=== PATIENT | female | born 1955 | race Caucasian/White ===

== ENCOUNTER 2018-06-05 11:07 | Inpatient (IN) | payer MEDICARE ==
[~2018-06-05] VITALS: Ht 162.6 cm; Wt 44.9 kg
[2018-06-05] VITALS (18 sets, daily range): BP systolic 82–159; BP diastolic 52–81; BMI 15.8
--- NOTE | ~2018-06-05 | MORECARE ---
CASE MANAGEMENT DISCHARGE SUMMARY PATIENT: DAVIDSON RIZZO ZAMZAM UNIT: [id number] ADM DATE: 06/05/18 AGE: 63 : 54 SEX: F ROOM/BED: D.1203 AUTHOR: NAYELI ZEPEDA PHYSICIAN: REFERRING PHYSICIAN: KRISTI AYOUB MD DATE OF SERVICE: 06/10/18 Discharge Plan Patient Name: DAVIDSON RIZZO Facility: [facility]:[place] : 1955 Planned Disposition: Home Anticipated Discharge Date: Discharge Date: Expected LOS: Initial Reviewer: [email or web address] Initial Review Date: 06/10/2018 Generated: 06/10/18 10:31 pm DCPIA - Discharge Planning Initial Assessment Updated by [email or web address]: Sue Cline on 06/10/18 9:25 pm * Is the patient Alert and Oriented? Yes * How many steps to enter\exit or inside your home? * PCP GUERRERO * Pharmacy [facility] * Preadmission Environment Home with Family * ADLs Partial Dependent * Partial ADLs (Assistance needed) Bathing * Equipment Nebulizer * Other Equipment SHOWER CHAIR * List name and contact numbers for known caregivers / representatives who currently or will assist patient after discharge: LATASHA LEE [phone] * Verbal permission to speak to the caregivers and representatives has been obtained from the patient. N/A * Community resources currently utilized None * Additional services required to return to the preadmission environment? No * Can the patient safely return to the preadmission environment? Yes * Has this patient been hospitalized within the prior 30 days at any hospital? No Last DP export: 06/10/18 8:24 Patient Name: DAVIDSON RIZZO Page 42820 at 2132 All edits/amendments must be made on the electronic document DICTATION DATE: 06/10/182130 IMMUNOLOGIST: MARIA INES 06/10/182130 RPT#: [id number] DC DATE: STATUS: ADM IN [address] [address] END OF REPORT
--- NOTE | ~2018-06-05 | MORECARE ---
CASE MANAGEMENT DISCHARGE SUMMARY PATIENT: DAVIDSON RIZZO ZAMZAM UNIT: [id number] ADM DATE: 06/05/18 AGE: 63 : 54 SEX: F ROOM/BED: D.1203 AUTHOR: DUANE,DOC PHYSICIAN: REFERRING PHYSICIAN: KRISTI AYOUB MD DATE OF SERVICE: 06/11/18 Discharge Plan Patient Name: DAVIDSON RIZZO Facility: [facility]:[place] : 1955 Planned Disposition: Home Anticipated Discharge Date: Discharge Date: 06/11/2018 Expected LOS: Initial Reviewer: [id number] Initial Review Date: 06/10/2018 Generated: 06/11/18 8:55 pm Comments DCP- Discharge Planning Updated by [email or web address]: Sue Cline on 06/11/18 6:[address] LATE ENTRY 06/11/18 CM GAVE PATIENT INFORMATION ON [facility] AND THEIR NUMBER. PATIENT DENIES ANY NEEDS AT THIS TIME. IMM EXPLAINED AND SERVED 06/11/18 @ 1228 DCP- Discharge Planning Updated by [email or web address]: Sue Cline on 06/10/18 8:[address] Patient Name: DAVIDSON RIZZO Admission Status: ER Accout number: [id number] Admission Date: 06-05-2018 : 1955 Admission Diagnosis:ACUTE RESPIRATORY FAILURE WITH HYPERCAPNIA Attending: KRISTI AYOUB Current LOS: 5 Anticipated DC Date: Planned Disposition: Home Primary Insurance: MEDICARE A & B Discharge Planning Comments: CM spoke with patient at bedside. Patient states that she wants to return to her home. Patient states that her brother was put on Hospice this week and she needs to get home because she doesn't want him to alone at home. Patient states that she would like to check on getting assistance to help with bathing and help with possibly light house work. CM gave her a pamphlet on [facility] and [facility]. CM will try to get in touch with these agencies in am to see if patient qualifies. CM will continue to follow and assist with discharge planning / needs. Husbandry Technician: Sue Cline DCPIA - Discharge Planning Initial Assessment Updated by [email or web address]: Sue Cline on 06/10/18 9:25 pm * Is the patient Alert and Oriented? Yes * How many steps to enter\exit or inside your home? * PCP GUERRERO * [place] [facility] [place] Preadmission Environment Home with Family * ADLs Partial Dependent * Partial ADLs (Assistance needed) Bathing * Equipment Nebulizer * Other Equipment SHOWER CHAIR * List name and contact numbers for known caregivers / representatives who currently or will assist patient after discharge: LATASHA LEE [phone] * Verbal permission to speak to the caregivers and representatives has been obtained from the patient. N/A * Community resources currently utilized None * Additional services required to return to the preadmission environment? No * Can the patient safely return to the preadmission environment? Yes * Has this patient been hospitalized within the prior 30 days at any hospital? No Coverage Notice Reviewer: [id number] - Sue Cline Notice Issued Date-Time: 06/11/2018 12:28 Notice Type: IM Discharge Notice Notice Delivered To: Patient Relationship to Patient: Self Front Office Specialist Name: Delivery Method: HAND - Hand Delivered Erika Days: Prior Verbal Notification: Recipient Understood Notice: Yes Recipient Signature: Yes Med Rec Note Co-signed by Attending: Coverage Notice Comment: Last DP export: 06/11/18 2:02 Patient Name: DAVIDSON RIZZO Page [id number] at 1955 All edits/amendments must be made on the electronic document DICTATION DATE: 06/11/181954 FARM MECHANIC APPRENTICE: MARIA INES 06/11/181954 RPT#: [id number] DC DATE:06/11/18 STATUS: DIS IN [facility] [address] [place] [address] END OF REPORT
--- NOTE | ~2018-06-05 | MORECARE ---
CASE MANAGEMENT DISCHARGE SUMMARY PATIENT: DAVIDSON RIZZO ZAMZAM UNIT: [id number] ADM DATE: 06/05/18 AGE: 63 : 54 SEX: F ROOM/BED: D.1203 AUTHOR: NAYELI ZEPEDA PHYSICIAN: REFERRING PHYSICIAN: KRISTI AYOUB MD DATE OF SERVICE: 06/10/18 Discharge Plan Patient Name: DAVIDSON RIZZO Facility: [facility]:[place] : 1955 Planned Disposition: Home Anticipated Discharge Date: Discharge Date: Expected LOS: Initial Reviewer: [email or web address] Initial Review Date: 06/10/2018 Generated: 06/10/18 10:24 pm Patient Name: DAVIDSON RIZZO Page 34700 at 2123 All edits/amendments must be made on the electronic document DICTATION DATE: 06/10/182123 STOCK CHECKERER: MARIA INES 06/10/182123 RPT#: [id number] DC DATE: STATUS: ADM IN [facility] [address] [place] [address] END OF REPORT
--- NOTE | ~2018-06-05 | MORECARE ---
CASE MANAGEMENT DISCHARGE SUMMARY PATIENT: DAVIDSON RIZZO ZAMZAM UNIT: [id number] ADM DATE: 06/05/18 AGE: 63 : 53 SEX: F ROOM/BED: D.1203 AUTHOR: DUANE,DOC PHYSICIAN: REFERRING PHYSICIAN: KRISTI AYOUB MD DATE OF SERVICE: 06/10/18 Discharge Plan Patient Name: DAVIDSON RIZZO Facility: [facility]:[place] : 1955 Planned Disposition: Home Anticipated Discharge Date: Discharge Date: Expected LOS: Initial Reviewer: [email or web address] Initial Review Date: 06/10/2018 Generated: 06/10/18 10:38 pm Comments DCP- Discharge Planning Updated by [email or web address]: Sue Cline on 06/10/18 8:[address] Patient Name: DAVIDSON RIZZO Admission Status: ER Accout number: [id number] Admission Date: 06-05-2018 : 1955 Admission Diagnosis:ACUTE RESPIRATORY FAILURE WITH HYPERCAPNIA Attending: KRISTI AYOUB Current LOS: 5 Anticipated DC Date: Planned Disposition: Home Primary Insurance: MEDICARE A & B Discharge Planning Comments: CM spoke with patient at bedside. Patient states that she wants to return to her home. Patient states that her brother was put on Hospice this week and she needs to get home because she doesn't want him to alone at home. Patient states that she would like to check on getting assistance to help with bathing and help with possibly light house work. CM gave her a pamphlet on [facility] and [facility] on Aging. CM will try to get in touch with these agencies in am to see if patient qualifies. CM will continue to follow and assist with discharge planning / needs. Linux Server Administrator: Sue Cline DCPIA - Discharge Planning Initial Assessment Updated by [email or web address]: Sue Cline on 06/10/18 9:25 pm * Is the patient Alert and Oriented? Yes * How many steps to enter\exit or inside your home? * PCP GUERRERO * Pharmacy [facility] [place] [place] * Preadmission Environment Home with Family * ADLs Partial Dependent * Partial ADLs (Assistance needed) Bathing * Equipment Nebulizer * Other Equipment SHOWER CHAIR * List name and contact numbers for known caregivers / representatives who currently or will assist patient after discharge: LATASHA LEE [phone] * Verbal permission to speak to the caregivers and representatives has been obtained from the patient. N/A * Community resources currently utilized None * Additional services required to return to the preadmission environment? No * Can the patient safely return to the preadmission environment? Yes * Has this patient been hospitalized within the prior 30 days at any hospital? No Last DP export: 06/10/18 8:32 Patient Name: DAVIDSON RIZZO Page 52359 at 2138 All edits/amendments must be made on the electronic document DICTATION DATE: 06/10/182137 COMBINE OPERATOR: MARIA INES 06/10/182137 RPT#: [id number] DC DATE: STATUS: ADM IN [facility] [address] [place] [address] END OF REPORT
--- NOTE | ~2018-06-05 | MORECARE ---
CASE MANAGEMENT DISCHARGE SUMMARY PATIENT: DAVIDSON RIZZO ZAMZAM UNIT: [id number] ADM DATE: 06/05/18 AGE: 63 : 53 SEX: F ROOM/BED: D.1203 AUTHOR: DUANE,DOC PHYSICIAN: REFERRING PHYSICIAN: KRISTI AYOUB MD DATE OF SERVICE: 06/11/18 Discharge Plan Patient Name: DAVIDSON RIZZO Facility: [facility]:[place] : 1955 Planned Disposition: Home Anticipated Discharge Date: Discharge Date: 06/11/2018 Expected LOS: Initial Reviewer: [email or web address] Initial Review Date: 06/10/2018 Generated: 06/11/18 4:02 pm Comments DCP- Discharge Planning Updated by [email or web address]: Sue Cline on 06/10/18 8:[address] Patient Name: DAVIDSON RIZZO Admission Status: ER Accout number: [id number] Admission Date: 06-05-2018 : 1955 Admission Diagnosis:ACUTE RESPIRATORY FAILURE WITH HYPERCAPNIA Attending: KRISTI AYOUB Current LOS: 5 Anticipated DC Date: Planned Disposition: Home Primary Insurance: MEDICARE A & B Discharge Planning Comments: CM spoke with patient at bedside. Patient states that she wants to return to her home. Patient states that her brother was put on Hospice this week and she needs to get home because she doesn't want him to alone at home. Patient states that she would like to check on getting assistance to help with bathing and help with possibly light house work. CM gave her a pamphlet on [facility] and [facility] Agency on Aging. CM will try to get in touch with these agencies in am to see if patient qualifies. CM will continue to follow and assist with discharge planning / needs. Internet Marketing Analyst: Sue Cline DCPIA - Discharge Planning Initial Assessment Updated by [email or web address]: Sue Cline on 06/10/18 9:25 pm * Is the patient Alert and Oriented? Yes * How many steps to enter\exit or inside your home? * PCP GUERRERO * Pharmacy [facility] * Preadmission Environment Home with Family * ADLs Partial Dependent * Partial ADLs (Assistance needed) Bathing * Equipment Nebulizer * Other Equipment SHOWER CHAIR * List name and contact numbers for known caregivers / representatives who currently or will assist patient after discharge: LATASHA LEE [phone] * Verbal permission to speak to the caregivers and representatives has been obtained from the patient. N/A * Community resources currently utilized None * Additional services required to return to the preadmission environment? No * Can the patient safely return to the preadmission environment? Yes * Has this patient been hospitalized within the prior 30 days at any hospital? No Last DP export: 06/10/18 8:38 Patient Name: DAVIDSON RIZZO Page 04804 at 1502 All edits/amendments must be made on the electronic document DICTATION DATE: 06/11/181500 CLINICAL DATA MANAGER: MARIA INES 06/11/18 1501 RPT#: [id number] DC DATE:06/11/18 STATUS: DIS IN [facility] [address] [place] [address] END OF REPORT
[2018-06-05 11:35] LABS: BASOPHILS 0.3 % (0-2); HEMATOCRIT 41.4 % (36.0-48.0); HEMOGLOBIN 13.3 g/dL (12-16); IMMATURE GRANULOCYTES 0.3 % (0-5); LYMPHOCYTES 35.9 % (15-50); MCH 31.7 pg (26.0-34.0); MCHC 32.1 g/dL (31.0-37.0); MCV 98.6 fL (80.0-100.0); MEAN PLATELET VOLUME 8.7 fL (7.4-10.4); MONOCYTES 3.7 % (2-11); NEUTROPHILS 57.8 % (40-80); PLATELET COUNT 324 10x3/uL (130-400); RDW 12.3 % (11.5-14.5); WBC 7.9 10x3/uL (4.8-10.8)
[2018-06-05 11:40] LABS: APPEARANCE CLEAR (CLEAR); BILIRUBIN NEGATIVE (NEGATIVE); COLOR YELLOW (YELLOW); GLUCOSE NEGATIVE (NEGATIVE); KETONE NEGATIVE (NEGATIVE); NITRITE NEGATIVE (NEGATIVE); PROTEIN 2+ mg/dL (NEGATIVE); SPECIFIC GRAVITY 1.015 (1.005-1.020); UROBILINOGEN NORMAL (NORMAL)
[2018-06-05 11:42] LABS: BACTERIA FEW /hpf (NONE SEEN); EPITHELIAL CELLS 0-5 /hpf (0-5); RED CELLS - URINE 0-5 /hpf (0-5); WHITE CELLS - URINE NSEEN /hpf (0-5)
[2018-06-05 11:47] LABS: ALBUMIN 3.2 g/dL (3.4-5.0); ALKALINE PHOSPHATASE 82 U/L (46-116); ALT (SGPT) 38 U/L (10-68); BILIRUBIN - TOTAL 0.35 mg/dL (0.2-1.3); CALC OSMOLALITY 279 mosm/kg (275-300); CALCIUM 8.2 mg/dL (8.5-10.1); CARBON DIOXIDE 24.1 mmol/L (21.0-32.0); CHLORIDE - SERUM 103 mmol/L (98-107); CREATININE - SERUM 0.6 mg/dL (0.6-1.3); GLUCOSE 182 mg/dL (74-106); POTASSIUM - SERUM 5.1 mmol/L (3.5-5.1); PROTEIN - SERUM 6.7 g/dL (6.4-8.2); SODIUM 138 mmol/L (136-145); UREA NITROGEN 11 mg/dL (7-18); eGFR NON AFRICAN AMERICAN > 90 mL/min (90-120)
[2018-06-05 11:58] LABS: CKMB 1.4 U/L (0.0-3.6); CREATINE KINASE 81 UL (21-215); TROPONIN-I 0.022 ng/mL (0.000-0.060)
[2018-06-05] MEDS ORDERED: SPIRIVA18 MCG INH (16:00)
[2018-06-05] MEDS ORDERED: ADVAIR HFA [SP]12 GM INH (16:04)
[2018-06-05] MEDS ORDERED: IPRAT-ALBUT 0.5-3 ML UPD (16:05)
[2018-06-05] MEDS ORDERED: ALBUTEROL SULF8.5 GM INH (16:07)
[2018-06-05] MEDS ORDERED: PLAVIX75 MG PO (16:08)
[2018-06-05] MEDS ORDERED: PROTONIX40 MG PO (16:09)
[2018-06-05] MEDS ORDERED: INDERAL 40 MG T40 MG PO (16:09)
[2018-06-05] MEDS ORDERED: LOW DOSE ASPIRI81 M1 PO (16:10)
[2018-06-05] MEDS ORDERED: PRAVACHOL40 MG PO (16:10)
[2018-06-05] MEDS ORDERED: VITAMIN D31000 UNIT PO (16:11)
[2018-06-05] MEDS ORDERED: MELATONIN 3 MG1 TAB PO (16:12)
[2018-06-05] MEDS ORDERED: MORPHINE S10 MG/5 ML (16:13)
[2018-06-05] MEDS ORDERED: ATIVAN0.5 MG (16:13)
[2018-06-06] VITALS (25 sets, daily range): BP systolic 85–143; BP diastolic 45–80
[2018-06-06 05:18] LABS: BASOPHILS 0 % (0-2); EOSINOPHILS 0 % (0-7); HEMATOCRIT 33.9 % (36.0-48.0); HEMOGLOBIN 10.7 g/dL (12-16); IMMATURE GRANULOCYTES 0.2 % (0-5); LYMPHOCYTES 9.7 % (15-50); MCH 30.8 pg (26.0-34.0); MCHC 31.6 g/dL (31.0-37.0); MCV 97.7 fL (80.0-100.0); MEAN PLATELET VOLUME 8.8 fL (7.4-10.4); MONOCYTES 2.3 % (2-11); NEUTROPHILS 87.8 % (40-80); PLATELET COUNT 251 10x3/uL (130-400); RBC 3.47 10x6/uL (4.00-5.40); RDW 12.4 % (11.5-14.5); WBC 9.9 10x3/uL (4.8-10.8)
[2018-06-06 05:48] LABS: ALBUMIN 2.6 g/dL (3.4-5.0); ALKALINE PHOSPHATASE 48 U/L (46-116); ALT (SGPT) 29 U/L (10-68); BILIRUBIN - TOTAL 0.27 mg/dL (0.2-1.3); CARBON DIOXIDE 24.4 mmol/L (21.0-32.0); CHLORIDE - SERUM 109 mmol/L (98-107); GLUCOSE 163 mg/dL (74-106); MAGNESIUM - SERUM 1.6 mg/dL (1.8-2.4); PHOSPHOROUS 2.6 mg/dL (2.5-4.9); PROTEIN - SERUM 5.8 g/dL (6.4-8.2); SODIUM 141 mmol/L (136-145); THYROID STIMULATING HORMONE 0.25 uIU/mL (0.36-3.74)
[2018-06-06 05:50] LABS: CALC OSMOLALITY 282 mosm/kg (275-300); CREATININE - SERUM 0.4 mg/dL (0.6-1.3); POTASSIUM - SERUM 3.5 mmol/L (3.5-5.1); UREA NITROGEN 8 mg/dL (7-18); eGFR NON AFRICAN AMERICAN > 90 mL/min (90-120)
[2018-06-06] MEDS ORDERED: TYLENOL #4 W/CO1 TAB PO (07:27)
[2018-06-06] MEDS ORDERED: SOMA350 MG PO (07:28)
[2018-06-06 10:16] LABS: UDS - AMPHET NEGATIVE QUAL (NEGATIVE); UDS - BARB NEGATIVE QUAL (NEGATIVE); UDS - BENZO POSITIVE QUAL (NEGATIVE); UDS - COCAINE NEGATIVE QUAL (NEGATIVE); UDS - OPIATE POSITIVE QUAL (NEGATIVE); UDS - PCP NEGATIVE QUAL (NEGATIVE); UDS - THC NEGATIVE QUAL (NEGATIVE)
[2018-06-06 10:36] LABS: APPEARANCE CLEAR (CLEAR); BILIRUBIN NEGATIVE (NEGATIVE); COLOR YELLOW (YELLOW); GLUCOSE NEGATIVE (NEGATIVE); KETONE NEGATIVE (NEGATIVE); NITRITE NEGATIVE (NEGATIVE); PROTEIN 1+ mg/dL (NEGATIVE); UROBILINOGEN NORMAL (NORMAL)
[2018-06-06 10:38] LABS: BACTERIA FEW /hpf (NONE SEEN); EPITHELIAL CELLS 0-5 /hpf (0-5); WHITE CELLS - URINE 0-5 /hpf (0-5)
[2018-06-07] VITALS (28 sets, daily range): BP systolic 90–165; BP diastolic 50–86; Ht 162.6 cm; Wt 44.9 kg
[2018-06-07 04:50] LABS: BASOPHILS 0 % (0-2); EOSINOPHILS 0 % (0-7); HEMATOCRIT 32.8 % (36.0-48.0); HEMOGLOBIN 10.3 g/dL (12-16); IMMATURE GRANULOCYTES 0.1 % (0-5); LYMPHOCYTES 9.9 % (15-50); MCH 31.2 pg (26.0-34.0); MCHC 31.4 g/dL (31.0-37.0); MCV 99.4 fL (80.0-100.0); MEAN PLATELET VOLUME 8.7 fL (7.4-10.4); PLATELET COUNT 270 10x3/uL (130-400); RDW 12.5 % (11.5-14.5); WBC 11.1 10x3/uL (4.8-10.8)
[2018-06-07 05:14] LABS: % SATURATION 12 % (15-55); IRON 26 ug/dl (35-150); TOTAL IRON BIND CAPACITY 212 ug/dl (260-445); UNSAT IRON BIND CAPACITY 186 ug/dl (150-375)
[2018-06-07 05:31] LABS: ALBUMIN 2.5 g/dL (3.4-5.0); ALKALINE PHOSPHATASE 40 U/L (46-116); ALT (SGPT) 21 U/L (10-68); BILIRUBIN - TOTAL 0.22 mg/dL (0.2-1.3); CALC OSMOLALITY 280 mosm/kg (275-300); CARBON DIOXIDE 25.5 mmol/L (21.0-32.0); CHLORIDE - SERUM 108 mmol/L (98-107); CREATININE - SERUM 0.5 mg/dL (0.6-1.3); FERRITIN 119 ng/mL (3-244); GLUCOSE 161 mg/dL (74-106); MAGNESIUM - SERUM 2.1 mg/dL (1.8-2.4); POTASSIUM - SERUM 3.9 mmol/L (3.5-5.1); PROTEIN - SERUM 5.8 g/dL (6.4-8.2); SODIUM 140 mmol/L (136-145); UREA NITROGEN 9 mg/dL (7-18); eGFR NON AFRICAN AMERICAN > 90 mL/min (90-120)
[2018-06-08] VITALS (25 sets, daily range): BP systolic 118–188; BP diastolic 60–95
[2018-06-08 06:20] LABS: BASOPHILS 0 % (0-2); EOSINOPHILS 0 % (0-7); HEMATOCRIT 38.9 % (36.0-48.0); IMMATURE GRANULOCYTES 0.2 % (0-5); MCHC 32.6 g/dL (31.0-37.0); MEAN PLATELET VOLUME 8.6 fL (7.4-10.4); MONOCYTES 6.8 % (2-11); RDW 12.4 % (11.5-14.5)
[2018-06-08 06:49] LABS: CALC OSMOLALITY 268 mosm/kg (275-300); CALCIUM 8.5 mg/dL (8.5-10.1); CARBON DIOXIDE 31.1 mmol/L (21.0-32.0); CHLORIDE - SERUM 99 mmol/L (98-107); GLUCOSE 120 mg/dL (74-106); MAGNESIUM - SERUM 1.8 mg/dL (1.8-2.4); POTASSIUM - SERUM 4.1 mmol/L (3.5-5.1); SODIUM 135 mmol/L (136-145); UREA NITROGEN 7 mg/dL (7-18)
[2018-06-08 06:50] LABS: CREATININE - SERUM 0.3 mg/dL (0.6-1.3); eGFR NON AFRICAN AMERICAN > 90 mL/min (90-120)
[2018-06-08 07:01] LABS: HEMOGLOBIN 12.7 g/dL (12-16); PLATELET COUNT 330 10x3/uL (130-400); RBC 3.97 10x6/uL (4.00-5.40); WBC 16.1 10x3/uL (4.8-10.8)
[2018-06-09] VITALS (22 sets, daily range): BP systolic 123–171; BP diastolic 60–88
[2018-06-09 06:43] LABS: BASOPHILS 0 % (0-2); EOSINOPHILS 0 % (0-7); HEMATOCRIT 38.1 % (36.0-48.0); HEMOGLOBIN 12.7 g/dL (12-16); IMMATURE GRANULOCYTES 0.2 % (0-5); LYMPHOCYTES 18.3 % (15-50); MCH 31.9 pg (26.0-34.0); MCHC 33.3 g/dL (31.0-37.0); MEAN PLATELET VOLUME 8.9 fL (7.4-10.4); MONOCYTES 7.9 % (2-11); NEUTROPHILS 73.6 % (40-80); PLATELET COUNT 309 10x3/uL (130-400); RBC 3.98 10x6/uL (4.00-5.40); RDW 12.1 % (11.5-14.5)
[2018-06-09 06:45] LABS: MCV 95.7 fL (80.0-100.0); WBC 9.6 10x3/uL (4.8-10.8)
[2018-06-09 06:46] LABS: CALCIUM 8.6 mg/dL (8.5-10.1); CARBON DIOXIDE 32.8 mmol/L (21.0-32.0); CHLORIDE - SERUM 104 mmol/L (98-107); GLUCOSE 105 mg/dL (74-106); SODIUM 143 mmol/L (136-145)
[2018-06-09 06:54] LABS: CALC OSMOLALITY 283 mosm/kg (275-300); CREATININE - SERUM 0.4 mg/dL (0.6-1.3); POTASSIUM - SERUM 4.2 mmol/L (3.5-5.1); UREA NITROGEN 9 mg/dL (7-18); eGFR NON AFRICAN AMERICAN > 90 mL/min (90-120)
[2018-06-09 22:07] LABS: IMMUNOGLOBULIN E 236 IU/mL (0-100)
[2018-06-10 00:45] VITALS: BP 160/78
[2018-06-10 04:13] VITALS: BP 178/84
[2018-06-10 06:47] LABS: BASOPHILS 0 % (0-2); EOSINOPHILS 0 % (0-7); HEMOGLOBIN 13.7 g/dL (12-16); IMMATURE GRANULOCYTES 0.2 % (0-5); LYMPHOCYTES 21.4 % (15-50); MCH 31.9 pg (26.0-34.0); MCHC 33.4 g/dL (31.0-37.0); MCV 95.3 fL (80.0-100.0); MEAN PLATELET VOLUME 8.6 fL (7.4-10.4); MONOCYTES 8.6 % (2-11); NEUTROPHILS 69.8 % (40-80); PLATELET COUNT 316 10x3/uL (130-400); RDW 12.1 % (11.5-14.5); WBC 11.3 10x3/uL (4.8-10.8)
[2018-06-10 07:01] LABS: CALC OSMOLALITY 278 mosm/kg (275-300); CALCIUM 9.3 mg/dL (8.5-10.1); CARBON DIOXIDE 30.4 mmol/L (21.0-32.0); CHLORIDE - SERUM 101 mmol/L (98-107); CREATININE - SERUM 0.5 mg/dL (0.6-1.3); GLUCOSE 112 mg/dL (74-106); POTASSIUM - SERUM 3.7 mmol/L (3.5-5.1); SODIUM 140 mmol/L (136-145); UREA NITROGEN 11 mg/dL (7-18); eGFR NON AFRICAN AMERICAN > 90 mL/min (90-120)
[2018-06-10 07:34] VITALS: BP 173/83
[2018-06-10 11:18] VITALS: BP 134/64
[2018-06-10 15:57] VITALS: BP 161/84
[2018-06-10 20:00] VITALS: BP 154/75
[2018-06-11] VITALS: BP 181/92
[2018-06-11 04:00] VITALS: BP 135/83
[2018-06-11 06:50] LABS: BASOPHILS 0.1 % (0-2); EOSINOPHILS 0.7 % (0-7); HEMATOCRIT 39.3 % (36.0-48.0); IMMATURE GRANULOCYTES 0.2 % (0-5); LYMPHOCYTES 32.1 % (15-50); MCHC 33.1 g/dL (31.0-37.0); MCV 96.8 fL (80.0-100.0); MEAN PLATELET VOLUME 9.2 fL (7.4-10.4); MONOCYTES 10.2 % (2-11); NEUTROPHILS 56.7 % (40-80); PLATELET COUNT 286 10x3/uL (130-400); RBC 4.06 10x6/uL (4.00-5.40); RDW 12.3 % (11.5-14.5); WBC 8.9 10x3/uL (4.8-10.8)
[2018-06-11 07:01] LABS: CALC OSMOLALITY 281 mosm/kg (275-300); CALCIUM 8.8 mg/dL (8.5-10.1); CARBON DIOXIDE 31.5 mmol/L (21.0-32.0); CHLORIDE - SERUM 101 mmol/L (98-107); CREATININE - SERUM 0.6 mg/dL (0.6-1.3); GLUCOSE 101 mg/dL (74-106); POTASSIUM - SERUM 3.6 mmol/L (3.5-5.1); SODIUM 141 mmol/L (136-145); eGFR NON AFRICAN AMERICAN > 90 mL/min (90-120)
[2018-06-11 07:07] LABS: UREA NITROGEN 14 mg/dL (7-18)
[2018-06-11 07:34] VITALS: BP 141/70
[2018-06-11] MEDS ORDERED: LEVOFLOXACIN500 MG PO (10:31)
[2018-06-11] MEDS ORDERED: FLORAJEN3 CAPS460 MG PO (10:32)
[2018-06-11] MEDS ORDERED: PREDNISONE10 MG PO (10:33)
[2018-06-11 11:25] VITALS: BP 130/67
== END 2018-06-11 14:06 | disposition home or self-care (01) | DRG 208 ==
LOC: D.ER 11:07 → D.CVICU 12:40 → D.EDHOLD 12:40 → D.CVICU 13:16 → D.M3 06-10 00:35
PROVIDERS: Emergency Medicine; Internal Medicine Nephrology; Internal Medicine Pulmonary Disease
PROC: 5A1945Z Respiratory Ventilation, 24-96 Consecutive Hours (ICD-10-PCS; principal; 2018-06-05)
DX: J96.02 Acute respiratory failure with hypercapnia (principal); E43 Unspecified severe protein-calorie malnutrition; Z68.1 Body mass index [BMI] 19.9 or less, adult; N39.0 Urinary tract infection, site not specified; F17.200 Nicotine dependence, unspecified, uncomplicated; K21.9 Gastro-esophageal reflux disease without esophagitis; I10 Essential (primary) hypertension; J43.9 Emphysema, unspecified; I25.10 Atherosclerotic heart disease of native coronary artery without angina pectoris; J20.9 Acute bronchitis, unspecified; I77.819 Aortic ectasia, unspecified site; D64.9 Anemia, unspecified; M47.819 Spondylosis without myelopathy or radiculopathy, site unspecified; M41.9 Scoliosis, unspecified; F11.90 Opioid use, unspecified, uncomplicated; Z95.5 Presence of coronary angioplasty implant and graft

== ENCOUNTER 2018-08-07 22:57 | Inpatient (IN) | payer MEDICARE ==
[~2018-08-07] VITALS: Ht 162.6 cm; Wt 40.8 kg
--- NOTE | ~2018-08-07 | CN ---
PATIENT NAME:DAVIDSON MACE MEDICAL RECORD: [id number] : 53 LOCATION:D.[facility] [place] ADMIT DATE: 08/08/18 ACCOUNT: [id number] CONSULTING PHYSICIAN: ALICJA JOVEL MD REFERRING PHYSICIAN: EUGENE DOSHI MD DATE OF CONSULTATION: 08/08/2018 CONSULT REQUESTING PHYSICIAN: Eugene Doshi MD REASON FOR CONSULTATION: Acute exacerbation of chronic obstructive pulmonary disease. HISTORY OF PRESENT ILLNESS: Ms. Mace is a 63-year-old female, who has a history of severe COPD. The patient was admitted with respiratory failure and she required mechanical ventilation. Now, she got sick last night where she could not breathe. Denies any fever or chill, no night sweats. Cough without any significant yellow-green colored phlegm. She still continues to smoke 15 cigarettes a day. REVIEW OF SYSTEMS: As in the history of present illness. PAST MEDICAL HISTORY: 1. COPD. 2. Chronic hypoxic hypercapnic respiratory failure. 3. Tobacco dependence syndrome. 4. Hypertension. 5. Coronary artery disease. 6. Gastroesophageal reflux disease. 7. Chronic backache. PAST SURGICAL HISTORY: She had cholecystectomy and cardiac catheterization and stent placement in the past. ALLERGIES: No known drug allergies. MEDICATIONS: On NUMBER26 is reviewed. PERSONAL AND SOCIAL HISTORY: The patient still continues to smoke 15 cigarettes a day. She is a nondrinker. FAMILY HISTORY: Noncontributory. PHYSICAL EXAMINATION: GENERAL: Now, the patient is very frail. VITAL SIGNS: The blood pressure is 119/73, pulse is 93, respirations 18, temperature ____, SpO2 97% on 3 liters nasal cannula. HEENT: Conjunctivae are pink. Sclerae are not icteric. NECK: Supple, no JVD. CHEST: The chest excursion is minimal but wheeze on forceful expiration. HEART: Rhythm regular. Normal sounds. No murmurs. ABDOMEN: Soft, bowel sounds present. No hepatosplenomegaly. RECTAL: Deferred. EXTREMITIES: No cyanosis, no clubbing, no pedal edema. CENTRAL NERVOUS SYSTEM: The patient is awake and alert. There are no obvious cranial nerve abnormalities. The gait was not tested. CONSULT REPORT [id number] DAVIDSON MACE CHEST RADIOGRAPH: There is hyperinflation, no acute infiltrate. LABORATORY DATA: WBC 12.9, hemoglobin 13.5, hematocrit 42.4. Chemistry: Sodium 136, potassium 4.6, BUN 13, creatinine 0.6. ABG: The pH is 7.26, pCO2 was 59.4, the pO2 is 93. This was done on 35% BiPAP. IMPRESSION: 1. Czfwx-mv-nuufdte hypoxic respiratory failure. 2. Respiratory acidosis. 3. Acute exacerbation of chronic obstructive pulmonary disease. 4. Tracheobronchitis. 5. Leukocytosis. 6. Tobacco dependence syndrome. 7. Generalized debility. RECOMMENDATIONS: 1. Supplemental oxygen to keep the SpO2 above 90%. 2. BiPAP, titrate to the patient comfort. 3. Albuterol/ipratropium nebulizer. 4. Brovana/budesonide nebulizer. 5. Discontinue Advair. 6. Deep venous thrombosis prophylaxis. 7. The patient was counseled to quit smoking. Followup labs and chest radiograph. The patient will need a Trilogy as outpatient and supplemental oxygen. Dr. Doshi, thank you for involving me in the care of Ms. Mace. TRANSINT:[id number] Voice Confirmation ID: [id number] DOCUMENT ID: [id number] ALICJA JOVEL MD CC: [id number] DICTATION DATE: 08/08/18 154 GAS PUMPING STATION SUPERVISOR: 08/08/180 ADM IN [place] [id number] [place] [address]
[~2018-08-07 22:57] MED LIST: ADVAIR HFA [SP]12 GM INH; ALBUTEROL SULF8.5 GM INH; ATIVAN0.5 MG; FLORAJEN3 CAPS460 MG PO; INDERAL 40 MG T40 MG PO; IPRAT-ALBUT 0.5-3 ML UPD; LEVOFLOXACIN500 MG PO; LOW DOSE ASPIRI81 M1 PO; MELATONIN 3 MG1 TAB PO; MORPHINE S10 MG/5 ML; PLAVIX75 MG PO; PRAVACHOL40 MG PO; PREDNISONE10 MG PO; PROTONIX40 MG PO; SOMA350 MG PO; SPIRIVA18 MCG INH; TYLENOL #4 W/CO1 TAB PO; VITAMIN D31000 UNIT PO
[2018-08-07] MEDS ORDERED: KADIAN10 MG PO (23:09)
[2018-08-07] MEDS ORDERED: NALOXONE (23:09)
[2018-08-07] MEDS ORDERED: PROTONIX40 MG PO (23:09)
[2018-08-07 23:29] LABS: BASOPHILS 0.3 % (0-2); EOSINOPHILS 3.3 % (0-7); HEMATOCRIT 42.4 % (36.0-48.0); HEMOGLOBIN 13.5 g/dL (12-16); IMMATURE GRANULOCYTES 0.2 % (0-5); LYMPHOCYTES 22.3 % (15-50); MCH 30.7 pg (26.0-34.0); MCHC 31.8 g/dL (31.0-37.0); MCV 96.4 fL (80.0-100.0); MEAN PLATELET VOLUME 8.4 fL (7.4-10.4); MONOCYTES 5.8 % (2-11); NEUTROPHILS 68.1 % (40-80); RDW 12.4 % (11.5-14.5); WBC 12.9 10x3/uL (4.8-10.8)
[2018-08-07 23:36] LABS: PLATELET COUNT 459 10x3/uL (130-400)
[2018-08-07 23:41] LABS: ALBUMIN 3.2 g/dL (3.4-5.0); ALKALINE PHOSPHATASE 106 U/L (46-116); ALT (SGPT) 27 U/L (10-68); BILIRUBIN - TOTAL 0.25 mg/dL (0.2-1.3); CALC OSMOLALITY 276 mosm/kg (275-300); CALCIUM 8.8 mg/dL (8.5-10.1); CARBON DIOXIDE 25.1 mmol/L (21.0-32.0); CHLORIDE - SERUM 101 mmol/L (98-107); CREATININE - SERUM 0.6 mg/dL (0.6-1.3); POTASSIUM - SERUM 4.6 mmol/L (3.5-5.1); PROTEIN - SERUM 7.3 g/dL (6.4-8.2); SODIUM 136 mmol/L (136-145); UREA NITROGEN 13 mg/dL (7-18); eGFR NON AFRICAN AMERICAN > 90 mL/min (90-120)
[2018-08-07 23:42] LABS: GLUCOSE 189 mg/dL (74-106)
[2018-08-07 23:51] LABS: LIPASE 180 U/L (73-393); MAGNESIUM - SERUM 1.9 mg/dL (1.8-2.4); PRO BNP 86 pg/mL (0-125); TROPONIN-I 0.021 ng/mL (0.000-0.060)
[2018-08-07 23:55] VITALS: BP 107/70
[2018-08-08] VITALS (7 sets, daily range): BP systolic 78–124; BP diastolic 49–77; BMI 15.4
--- NOTE | 2018-08-08 00:37 | NUR ---
RECEIVED TO FLOOR FROM ER, ORIENTED TO ROOM, DENIES NEEDS, BED LOWEST POSIITON, CALL LIGHT IN REACH, WILL CONTINUE POC
[2018-08-08] MEDS ORDERED: SOMA350 MG PO (00:42)
[2018-08-08] MEDS ORDERED: MUCINEX DM ER1 EAC1 PO (00:43)
[2018-08-08] MEDS ORDERED: VITAMIN B-12500 MC1 PO (00:49)
[2018-08-08 06:05] LABS: APPEARANCE CLEAR (CLEAR); COLOR YELLOW (YELLOW); GLUCOSE NEGATIVE (NEGATIVE); NITRITE NEGATIVE (NEGATIVE); PROTEIN NEGATIVE (NEGATIVE)
[2018-08-08 06:06] LABS: BILIRUBIN NEGATIVE (NEGATIVE); KETONE SMALL mg/dL (NEGATIVE); UROBILINOGEN NORMAL (NORMAL)
[2018-08-08 06:14] LABS: UDS - AMPHET NEGATIVE QUAL (NEGATIVE); UDS - BARB NEGATIVE QUAL (NEGATIVE); UDS - BENZO NEGATIVE QUAL (NEGATIVE); UDS - COCAINE NEGATIVE QUAL (NEGATIVE); UDS - OPIATE POSITIVE QUAL (NEGATIVE); UDS - PCP NEGATIVE QUAL (NEGATIVE); UDS - THC NEGATIVE QUAL (NEGATIVE)
[2018-08-08 06:30] LABS: APPEARANCE CLEAR (CLEAR); BILIRUBIN NEGATIVE (NEGATIVE); COLOR YELLOW (YELLOW); GLUCOSE NEGATIVE (NEGATIVE); KETONE SMALL mg/dL (NEGATIVE); NITRITE NEGATIVE (NEGATIVE); PROTEIN 2+ mg/dL (NEGATIVE); UROBILINOGEN NORMAL (NORMAL)
[2018-08-08 06:36] LABS: BACTERIA FEW /hpf (NONE SEEN); EPITHELIAL CELLS OCC /hpf (0-5); GRANULAR CAST RARE /lpf (NONE SEEN); HYALINE CAST OCC /lpf (NONE SEEN); RED CELLS - URINE 0-5 /hpf (0-5); WHITE CELLS - URINE 0-5 /hpf (0-5); YEAST <1+ /hpf (NONE SEEN)
--- NOTE | 2018-08-08 08:36 | NUR ---
PT SITTING UP IN BED WATCHING TV. BROUGHT COFFEE AND WATER. NO S/S OF ACUTE DISTRESS. CL IN REACH.
--- NOTE | 2018-08-08 19:01 | NUR ---
PT RESTING IN BED. NO S/S OF ACUTE DISTRESS. CL IN PLACE.
--- NOTE | 2018-08-08 19:25 | NUR ---
RECEIVED REPORT, ASSUMED CARE, A&O, DENIES NEEDS, O2 3L NC, NO S/S OF DISTRESS NOTED, CALL LIGHT IN REACH, BED LOWEST POSITION, WILL CONTINUE POC
--- NOTE | 2018-08-08 22:41 | NUR ---
PATIENT IN BED ASLEEP WITH RESPRATION EVEN AND UNLABORED CALL LIGHT IN REACH. O2 IN PLACE VIA N/C NO S/S OF DISTRESS.WILL CONTIUE WITH PLAIN OF CARE.
[2018-08-09] VITALS: BP 125/68
[2018-08-09 03:00] VITALS: BP 118/71
[2018-08-09 06:22] LABS: BASOPHILS 0 % (0-2); EOSINOPHILS 0 % (0-7); HEMATOCRIT 37.2 % (36.0-48.0); HEMOGLOBIN 12.1 g/dL (12-16); IMMATURE GRANULOCYTES 0.2 % (0-5); LYMPHOCYTES 10.3 % (15-50); MCH 30.8 pg (26.0-34.0); MCHC 32.5 g/dL (31.0-37.0); MCV 94.7 fL (80.0-100.0); MEAN PLATELET VOLUME 8.4 fL (7.4-10.4); MONOCYTES 4.1 % (2-11); NEUTROPHILS 85.4 % (40-80); PLATELET COUNT 399 10x3/uL (130-400); RBC 3.93 10x6/uL (4.00-5.40); RDW 12.7 % (11.5-14.5); WBC 10.6 10x3/uL (4.8-10.8)
[2018-08-09 06:58] LABS: CALCIUM 8.5 mg/dL (8.5-10.1); CARBON DIOXIDE 26.2 mmol/L (21.0-32.0); CHLORIDE - SERUM 104 mmol/L (98-107); CREATININE - SERUM 0.5 mg/dL (0.6-1.3); GLUCOSE 149 mg/dL (74-106); MAGNESIUM - SERUM 2.2 mg/dL (1.8-2.4); SODIUM 140 mmol/L (136-145); eGFR NON AFRICAN AMERICAN > 90 mL/min (90-120)
[2018-08-09 07:05] LABS: CALC OSMOLALITY 283 mosm/kg (275-300); POTASSIUM - SERUM 3.9 mmol/L (3.5-5.1); UREA NITROGEN 19 mg/dL (7-18)
[2018-08-09 09:00] VITALS: BP 121/76
[2018-08-09 10:58] VITALS: Ht 162.6 cm; Wt 40.8 kg
[2018-08-09 13:34] VITALS: BP 116/73
[2018-08-09 16:00] VITALS: BP 131/67
[2018-08-09 21:13] VITALS: BP 121/76
[2018-08-10 01:32] VITALS: BP 134/74
--- NOTE | 2018-08-10 02:04 | NUR ---
RESTING IN BED NO APPARENT DISTRESS CALL LIGHT IN REACH
[2018-08-10 05:23] VITALS: BP 145/77
[2018-08-10 06:09] LABS: BASOPHILS 0.2 % (0-2); EOSINOPHILS 0.1 % (0-7); HEMATOCRIT 34.9 % (36.0-48.0); IMMATURE GRANULOCYTES 0.2 % (0-5); LYMPHOCYTES 32.6 % (15-50); MCH 30.4 pg (26.0-34.0); MCHC 31.5 g/dL (31.0-37.0); MCV 96.4 fL (80.0-100.0); MEAN PLATELET VOLUME 8.4 fL (7.4-10.4); MONOCYTES 6.4 % (2-11); NEUTROPHILS 60.5 % (40-80); PLATELET COUNT 384 10x3/uL (130-400); RBC 3.62 10x6/uL (4.00-5.40); RDW 12.7 % (11.5-14.5); WBC 10.1 10x3/uL (4.8-10.8)
[2018-08-10 06:35] LABS: CALC OSMOLALITY 279 mosm/kg (275-300); CALCIUM 8.3 mg/dL (8.5-10.1); CARBON DIOXIDE 27.6 mmol/L (21.0-32.0); CHLORIDE - SERUM 103 mmol/L (98-107); CREATININE - SERUM 0.5 mg/dL (0.6-1.3); MAGNESIUM - SERUM 1.9 mg/dL (1.8-2.4); POTASSIUM - SERUM 3.8 mmol/L (3.5-5.1); SODIUM 139 mmol/L (136-145); UREA NITROGEN 17 mg/dL (7-18); eGFR NON AFRICAN AMERICAN > 90 mL/min (90-120)
[2018-08-10 06:36] LABS: GLUCOSE 93 mg/dL (74-106)
--- NOTE | 2018-08-10 07:30 | NUR ---
REC'D IN BED AWAKE AND ALERT. RESP EVEN AND UNLABORED WITH NO DISTRESS NOTED. CAN EXPRESS NEEDS AND WANTS. NO C/O NOTED OR VOICED. ASSESSMENT COMPLETED. C/L IM REACH AT BEDSIDE.
[2018-08-10 08:07] VITALS: BP 138/80
--- NOTE | 2018-08-10 09:26 | NUR ---
WAS MEDICATED WITH [facility]CO AT THIS TIME FOR C/O BACK PAIN RATING 7/10 ON PAIN SCALE. C/L IN REACH AT BEDSIDE.
[2018-08-10 12:39] VITALS: BP 146/73
--- NOTE | 2018-08-10 14:10 | MORECARE ---
CASE MANAGEMENT DISCHARGE SUMMARY PATIENT: DAVIDSON RIZZO ZAMZAM UNIT: [id number] ADM DATE: 08/08/18 AGE: 63 : 53 SEX: F ROOM/BED: D.[facility] AUTHOR: NAYELI ZEPEDA PHYSICIAN: REFERRING PHYSICIAN: JAZMIN DOSHI MD DATE OF SERVICE: 08/10/18 Discharge Plan Patient Name: DAVIDSON RIZZO Facility: [facility]:[place] : 1955 Planned Disposition: Inpatient Rehab Anticipated Discharge Date: Discharge Date: Expected LOS: Initial Reviewer: [email or web address] Initial Review Date: 08/10/2018 Generated: 08/10/18 3:10 pm DCPIA - Discharge Planning Initial Assessment Updated by [email or web address]: Meghann Roberson on 08/10/18 2:09 pm * Is the patient Alert and Oriented? Yes * How many steps to enter\exit or inside your home? 4/0 * PCP Dr. Doshi * Pharmacy [facility] * Preadmission Environment Home with Family * ADLs Independent * Equipment Nebulizer Shower Chair * List name and contact numbers for known caregivers / representatives who currently or will assist patient after discharge: Kim Tillman [facility] [phone] * Verbal permission to speak to the caregivers and representatives has been obtained from the patient. Yes * Community resources currently utilized None * Additional services required to return to the preadmission environment? Yes * Can the patient safely return to the preadmission environment? Yes * Has this patient been hospitalized within the prior 30 days at any hospital? No Patient Name: DAVIDSON RIZZO Page 05583 at 1410 All edits/amendments must be made on the electronic document DICTATION DATE: 08/10/181409 TINNING MACHINE SET UP OPERATOR: MARIA INES 08/10/18 1410 RPT#: [id number] DC DATE: STATUS: ADM IN [facility] [address] [place] [address] END OF REPORT
--- NOTE | 2018-08-10 14:18 | MORECARE ---
CASE MANAGEMENT DISCHARGE SUMMARY PATIENT: DAVIDSON RIZZO ZAMZAM UNIT: [id number] ADM DATE: 08/08/18 AGE: 63 : 53 SEX: F ROOM/BED: D.2232 AUTHOR: NAYELI ZEPEDA PHYSICIAN: REFERRING PHYSICIAN: JAZMIN DOSHI MD DATE OF SERVICE: 08/10/18 Discharge Plan Patient Name: DAVIDSON RIZZO Facility: [facility]:[place] : 1955 Planned Disposition: Inpatient Rehab Anticipated Discharge Date: Discharge Date: Expected LOS: Initial Reviewer: [email or web address] Initial Review Date: 08/10/2018 Generated: 08/10/18 3:18 pm Comments DCP- Discharge Planning Updated by [email or web address]: Meghann Roberson on 08/10/18 1:[address] Patient Name: DAVIDSON RIZZO Admission Status: ER Accout number: [id number] Admission Date: 08-08-2018 : 1955 Admission Diagnosis: Attending: JAZMIN DOSHI Current LOS: 2 Anticipated DC Date: Planned Disposition: Inpatient Rehab Primary Insurance: MEDICARE A & B Discharge Planning Comments: CM met with patient to discuss discharge planning. She states her brother lives with her in a single story home. She states her brother is on hospice and her cousin is caring for him while she is in the hospital. States she plans on going to inpatient rehab at [facility] prior to discharge home. States she receives her nebulizer supplies from [facility] and would like to use them for her oxygen (if needed) and trilogy. She will need a walk test prior to discharge for oxygen needs. I called Cecelia at [facility] and clinical faxed for Trilogy. I spoke to Teresa in inpatient rehab and informed of screen and possible oxygen/trilogy needs. CM will continue to follow and assist with discharge planning/needs. Roll Reclaimer: Meghann Roberson DCPIA - Discharge Planning Initial Assessment Updated by [email or web address]: Meghann Roberson on 08/10/18 2:09 pm * Is the patient Alert and Oriented? Yes * How many steps to enter\exit or inside your home? 4/0 * PCP Dr. Doshi * Pharmacy [facility] * Preadmission Environment Home with Family * ADLs Independent * Equipment Nebulizer Shower Chair * List name and contact numbers for known caregivers / representatives who currently or will assist patient after discharge: Kim Tillman - abelardo - [phone] * Verbal permission to speak to the caregivers and representatives has been obtained from the patient. Yes * Community resources currently utilized None * Additional services required to return to the preadmission environment? Yes * Can the patient safely return to the preadmission environment? Yes * Has this patient been hospitalized within the prior 30 days at any hospital? No Last DP export: 08/10/18 1:10 p Patient Name: DAVIDSON RIZZO Page 51971 at 1418 All edits/amendments must be made on the electronic document DICTATION DATE: 08/10/181417 FACSIMILE OPERATOR: MARIA INES 08/10/181417 RPT#: [id number] DC DATE: STATUS: ADM IN [facility] [address] [place] [address] END OF REPORT
--- NOTE | 2018-08-10 14:26 | MORECARE ---
CASE MANAGEMENT DISCHARGE SUMMARY PATIENT: DAVIDSON RIZZO ZAMZAM UNIT: [id number] ADM DATE: 08/08/18 AGE: 63 : 53 SEX: F ROOM/BED: D.2232 AUTHOR: NAYELI ZEPEDA PHYSICIAN: REFERRING PHYSICIAN: JAZMIN DOSHI MD DATE OF SERVICE: 08/10/18 Discharge Plan Patient Name: DAVIDSON RIZZO Facility: [facility]:[place] : 1955 Planned Disposition: Inpatient Rehab Anticipated Discharge Date: Discharge Date: Expected LOS: Initial Reviewer: [email or web address] Initial Review Date: 08/10/2018 Generated: 08/10/18 3:26 pm Comments DCP- Discharge Planning Updated by [email or web address]: Meghann Roberson on 08/10/18 1:[address] Patient Name: DAVIDSON RIZZO Admission Status: ER Accout number: [id number] Admission Date: 08-08-2018 : 1955 Admission Diagnosis: Attending: JAZMIN DOSHI Current LOS: 2 Anticipated DC Date: Planned Disposition: Inpatient Rehab Primary Insurance: MEDICARE A & B Discharge Planning Comments: CM met with patient to discuss discharge planning. She states her brother lives with her in a single story home. She states her brother is on hospice and her cousin is caring for him while she is in the hospital. States she plans on going to inpatient rehab at [facility] prior to discharge home. States she receives her nebulizer supplies from [facility] and would like to use them for her oxygen (if needed) and trilogy. She will need a walk test prior to discharge for oxygen needs. I called Cecelia at [facility] and clinical faxed for Trilogy. I spoke to Teresa in inpatient rehab and informed of screen and possible oxygen/trilogy needs. CM will continue to follow and assist with discharge planning/needs. Hat Former: Meghann Roberson DCPIA - Discharge Planning Initial Assessment Updated by [email or web address]: Meghann Roberson on 08/10/18 2:09 pm * Is the patient Alert and Oriented? Yes * How many steps to enter\exit or inside your home? 4/0 * PCP Dr. Doshi * Pharmacy [facility] on [address] * Preadmission Environment Home with Family * ADLs Independent * Equipment Nebulizer Shower Chair * List name and contact numbers for known caregivers / representatives who currently or will assist patient after discharge: Kim zhou - [phone] * Verbal permission to speak to the caregivers and representatives has been obtained from the patient. Yes * Community resources currently utilized None * Additional services required to return to the preadmission environment? Yes * Can the patient safely return to the preadmission environment? Yes * Has this patient been hospitalized within the prior 30 days at any hospital? No External Providers External Provider: Opal Segura Next Contact Date: Service Request Date: Service Type: Resolution: Reviewer: Comments: Last DP export: 08/10/18 1:18 p Patient Name: DAVIDSON RIZZO Page [id number] at 1426 All edits/amendments must be made on the electronic document DICTATION DATE: 08/10/181425 MEAT GRADER: MARIA INES 08/10/18 142 RPT#: [id number] DC DATE: STATUS: ADM IN [facility] [address] [place] [address] END OF REPORT
[2018-08-10 16:06] VITALS: BP 135/65
--- NOTE | 2018-08-10 16:11 | NUR ---
SPOKE WITH DR. MASTERS AND ADVISED REHAB HAS ACCEPTED PT AND HAS BED AVAILABLE. ORDER REC'D TO D/C TO REHAB.
--- NOTE | 2018-08-10 16:19 | MORECARE ---
CASE MANAGEMENT DISCHARGE SUMMARY PATIENT: DAVIDSON RIZZO ZAMZAM UNIT: [id number] ADM DATE: 08/08/18 AGE: 63 : 53 SEX: F ROOM/BED: D.[facility] AUTHOR: NAYELI ZEPEDA PHYSICIAN: REFERRING PHYSICIAN: JAZMIN DOSHI MD DATE OF SERVICE: 08/10/18 Discharge Plan Patient Name: DAVIDSON RIZZO Facility: [facility]:[place] : 1955 Planned Disposition: Inpatient Rehab Anticipated Discharge Date: Discharge Date: Expected LOS: Initial Reviewer: [email or web address] Initial Review Date: 08/10/2018 Generated: 08/10/18 5:19 pm Comments DCP- Discharge Planning Updated by : Nancy Bah on 08/10/18 3:[address] PT WILL BE D/C TO INPATIENT REHAB TODAY. [facility] CALLED AND WILL DELIVER TRILOGY TO INPATIENT REHAB TOMORROW. DCP- Discharge Planning Updated by [email or web address]: Meghann Roberson on 08/10/18 1:[address] Patient Name: DAVIDSON RIZZO Admission Status: ER Accout number: [id number] Admission Date: 08-08-2018 : 1955 Admission Diagnosis: Attending: JAZMIN DOSHI Current LOS: 2 Anticipated DC Date: Planned Disposition: Inpatient Rehab Primary Insurance: MEDICARE A & B Discharge Planning Comments: CM met with patient to discuss discharge planning. She states her brother lives with her in a single story home. She states her brother is on hospice and her cousin is caring for him while she is in the hospital. States she plans on going to inpatient rehab at [facility] prior to discharge home. States she receives her nebulizer supplies from [facility] and would like to use them for her oxygen (if needed) and trilogy. She will need a walk test prior to discharge for oxygen needs. I called Cecelia at [facility] and clinical faxed for Trilogy. I spoke to Teresa in inpatient rehab and informed of screen and possible oxygen/trilogy needs. CM will continue to follow and assist with discharge planning/needs. Furniture Finisher Helper: Meghann Roberson DCPIA - Discharge Planning Initial Assessment Updated by [email or web address]: Meghann Roberson on 08/10/18 2:09 pm * Is the patient Alert and Oriented? Yes * How many steps to enter\exit or inside your home? 4/0 * PCP Dr. Doshi * Pharmacy [facility] on [address] * Preadmission Environment Home with Family * ADLs Independent * Equipment Nebulizer Shower Chair * List name and contact numbers for known caregivers / representatives who currently or will assist patient after discharge: Kim Tillman - abelardo - [phone] * Verbal permission to speak to the caregivers and representatives has been obtained from the patient. Yes * Community resources currently utilized None * Additional services required to return to the preadmission environment? Yes * Can the patient safely return to the preadmission environment? Yes * Has this patient been hospitalized within the prior 30 days at any hospital? No Last DP export: 08/10/18 1:26 p Patient Name: DAVIDSON RIZZO Page [phone] at 1619 All edits/amendments must be made on the electronic document DICTATION DATE: 08/10/181617 OFFICE MESSENGER: MARIA INES 08/10/181617 RPT#: [id number] DC DATE: STATUS: ADM IN [facility] [address] [place] [address] END OF REPORT
--- NOTE | 2018-08-10 16:25 | NUR ---
WAS MEDOICATED WITH [place] FOR C/OP PAIN RATING 6/10 ON PAIN SCALE. C/L IN REACH AT BEDSIDE.
--- NOTE | 2018-08-10 18:02 | NUR ---
SALES EXPERT HOME THEATER NOTES - READY TO GO DOWN TO REHAB. NO DIFFICULTY BREATHING ON EXERTION. NO FURTHER NEEDS AT THIS TIME
[2018-08-10] MEDS ORDERED: HYDROCODON-ACE1 EAC7 PO (18:13)
--- NOTE | 2018-08-10 18:39 | NUR ---
PT DC DOWN TO IN PATIENT REHAB. HAS O2 IN USE VIA N/C @ 4 L/M. DENIES ANY PAIN OR DISCOMFORT AT THIS TIME. STABLE CONDITION UPON DEPARTURE.
--- NOTE | 2018-08-17 07:04 | MORECARE ---
CASE MANAGEMENT DISCHARGE SUMMARY PATIENT: DAVIDSON RIZZO ZAMZAM UNIT: [id number] ADM DATE: 08/08/18 AGE: 63 : 53 SEX: F ROOM/BED: D.2232 AUTHOR: NAYELI ZEPEDA PHYSICIAN: REFERRING PHYSICIAN: JAZMIN DOSHI MD DATE OF SERVICE: 08/17/18 Discharge Plan Patient Name: DAVIDSON RIZZO Facility: [facility]:[place] : 1955 Planned Disposition: Inpatient Rehab Anticipated Discharge Date: Discharge Date: 08/10/2018 Expected LOS: 0 Initial Reviewer: [email or web address] Initial Review Date: 08/10/2018 Generated: 08/17/18 8:04 am Comments DCP- Discharge Planning Updated by [email or web address]: Nancy Bah on 08/10/18 3:[address] PT WILL BE D/C TO INPATIENT REHAB TODAY. [facility] CALLED AND WILL DELIVER TRILOGY TO INPATIENT REHAB TOMORROW. DCP- Discharge Planning Updated by [email or web address]: Meghann Roberson on 08/10/18 1:[address] Patient Name: DAVIDSON RIZZO Admission Status: ER Accout number: [id number] Admission Date: 08-08-2018 : 1955 Admission Diagnosis: Attending: JAZMIN DOSHI Current LOS: 2 Anticipated DC Date: Planned Disposition: Inpatient Rehab Primary Insurance: MEDICARE A & B Discharge Planning Comments: CM met with patient to discuss discharge planning. She states her brother lives with her in a single story home. She states her brother is on hospice and her cousin is caring for him while she is in the hospital. States she plans on going to inpatient rehab at [facility] prior to discharge home. States she receives her nebulizer supplies from [facility] and would like to use them for her oxygen (if needed) and trilogy. She will need a walk test prior to discharge for oxygen needs. I called Cecelia at [facility] and clinical faxed for Trilogy. I spoke to Teresa in inpatient rehab and informed of screen and possible oxygen/trilogy needs. CM will continue to follow and assist with discharge planning/needs. Law Instructor: Meghann Orrell DCPIA - Discharge Planning Initial Assessment Updated by [email or web address]: Meghann Roberson on 08/10/18 2:09 pm * Is the patient Alert and Oriented? Yes * How many steps to enter\exit or inside your home? 4/0 * PCP Dr. Doshi * Pharmacy [facility] on [address] * Preadmission Environment Home with Family * ADLs Independent * Equipment Nebulizer Shower Chair * List name and contact numbers for known caregivers / representatives who currently or will assist patient after discharge: Kim Tillman [facility] - [phone] * Verbal permission to speak to the caregivers and representatives has been obtained from the patient. Yes * Community resources currently utilized None * Additional services required to return to the preadmission environment? Yes * Can the patient safely return to the preadmission environment? Yes * Has this patient been hospitalized within the prior 30 days at any hospital? No Last DP export: 08/10/18 3:19 p Patient Name: DAVIDSON RIZZO Page [id number] at 0704 All edits/amendments must be made on the electronic document DICTATION DATE: 08/17/18702 APPRAISER PERSONAL PROPERTY: MARIA INES 08/17/18702 RPT#: [id number] DC DATE:08/10/18 STATUS: DIS IN [facility] [address] [place] [address] END OF REPORT
== END 2018-08-10 18:59 | DRG 189 ==
LOC: D.ER 22:57 → D.MS 08-08 00:02 → D.EDHOLD 08-08 00:02 → D.MS 08-08 00:12
PROVIDERS: Family Medicine; Internal Medicine Pulmonary Disease; ADMIT Family Medicine
PROC: 5A09457 Assistance with Respiratory Ventilation, 24-96 Consecutive Hours, Continuous Positive Airway Pressure (ICD-10-PCS; principal; 2018-08-09)
DX: J96.22 Acute and chronic respiratory failure with hypercapnia (principal); E46 Unspecified protein-calorie malnutrition; Z68.1 Body mass index [BMI] 19.9 or less, adult; J96.21 Acute and chronic respiratory failure with hypoxia; F17.200 Nicotine dependence, unspecified, uncomplicated; E55.9 Vitamin D deficiency, unspecified; E53.8 Deficiency of other specified B group vitamins; K21.9 Gastro-esophageal reflux disease without esophagitis; E78.5 Hyperlipidemia, unspecified; I25.10 Atherosclerotic heart disease of native coronary artery without angina pectoris; J43.9 Emphysema, unspecified; M81.0 Age-related osteoporosis without current pathological fracture

== ENCOUNTER 2018-08-10 19:00 | Inpatient (IN) | payer MEDICARE ==
[~2018-08-10] VITALS: Ht 162.6 cm; Wt 40.8 kg
[2018-08-10 19:00] VITALS: BP 139/64
[~2018-08-10 19:00] MED LIST changes: +HYDROCODON-ACE1 EAC7 PO; +KADIAN10 MG PO; +MUCINEX DM ER1 EAC1 PO; +NALOXONE; +VITAMIN B-12500 MC1 PO
[2018-08-10 22:29] VITALS: BP 139/64; BMI 15.4
--- NOTE | 2018-08-11 02:19 | NUR ---
PT ASLEEP NO NEEDS NOTED FLUIDS AND CALL LIGHT WITHIN REACH
[2018-08-11 06:48] LABS: BASOPHILS 0.2 % (0-2); EOSINOPHILS 0.5 % (0-7); HEMATOCRIT 35.7 % (36.0-48.0); HEMOGLOBIN 11.3 g/dL (12-16); IMMATURE GRANULOCYTES 0.2 % (0-5); LYMPHOCYTES 27.3 % (15-50); MCH 30.3 pg (26.0-34.0); MCHC 31.7 g/dL (31.0-37.0); MCV 95.7 fL (80.0-100.0); MEAN PLATELET VOLUME 8.3 fL (7.4-10.4); MONOCYTES 8.4 % (2-11); NEUTROPHILS 63.4 % (40-80); PLATELET COUNT 376 10x3/uL (130-400); RBC 3.73 10x6/uL (4.00-5.40); WBC 10.8 10x3/uL (4.8-10.8)
[2018-08-11 06:59] LABS: CALC OSMOLALITY 278 mosm/kg (275-300); CALCIUM 8.3 mg/dL (8.5-10.1); CARBON DIOXIDE 29.1 mmol/L (21.0-32.0); CHLORIDE - SERUM 104 mmol/L (98-107); CREATININE - SERUM 0.5 mg/dL (0.6-1.3); GLUCOSE 90 mg/dL (74-106); SODIUM 139 mmol/L (136-145); UREA NITROGEN 14 mg/dL (7-18); eGFR NON AFRICAN AMERICAN > 90 mL/min (90-120)
--- NOTE | 2018-08-11 07:35 | NUR ---
PT SITTING UP IN BED. CL IN REACH. PT DENIES NEEDS OR PAIN. BED IN LOW POSITION. SIDE RAILS X2. RESP EVEN AND UNLABORED. O2 ON 2L VIA NC. WILL CONTINUE TO MONITOR.
[2018-08-11 08:00] VITALS: BP 152/81
--- NOTE | 2018-08-11 11:36 | NUR ---
CASE MANAGEMENT Admitted to rehab 08/10/18. Ms. Mace's discharge plan is to return to her home. She has 4 steps to enter her home. PCP is Dr. Doshi. Pharmacy [facility] on [address]. DME at home, Nebulizer and shower chair. Will require Trilogy Non-Invasive Ventilator at discharge. Transportation home to be provided by her cousin. Gema Gilman, REGIONAL EHS MANAGER Rehab Sericulturist
--- NOTE | 2018-08-11 11:45 | NUR ---
pt sitting up in wheelchair. cl in reach. pt denies needs or pain. wctm
[2018-08-11 11:46] VITALS: Ht 162.6 cm; Wt 40.8 kg
--- NOTE | 2018-08-11 12:25 | NUR ---
SITTING UP EATING LUNCH.
--- NOTE | 2018-08-11 15:00 | NUR ---
PT LYING IN BED. CL IN REACH. PT DENIES NEEDS OR PAIN. WCTM
--- NOTE | 2018-08-11 17:57 | NUR ---
PT SITTING UP ON SIDE OF BED. CL IN REACH. PT DENIES NEEDS AT THIS TIME. BED IN LOW POSITION. SIDE RAILS X2. RESP EVEN AND UNLABORED. O2 ON 2L VIA NC. WCTM
[2018-08-11 19:00] VITALS: BP 157/57
--- NOTE | 2018-08-11 19:19 | NUR ---
GREETED PATIENT AND INTRODUCED MYSELF HER NURSE. PATIENT IS LAYING IN BED RELAXING AND DENIES ANY FURTHER NEEDS AT THIS TIME. CALL LIGHT IN REACH.
--- NOTE | 2018-08-12 00:39 | NUR ---
PATIENT ASLEEP WITH EYES CLOSED LAYING IN SUPINE POSITION WITH HOB AT 30 DEGREES. TRIOLOGY IN USE. RESPIRATIONS EVEN. NO SIGNS OF DISTRESS. CALL LIGHT IN REACH.
--- NOTE | 2018-08-12 03:10 | NUR ---
PATIENT ASLEEP WITH EYES CLOSED LAYING IN SUPINE POSITION. TRILOGY MACHINE IN USE. RESPIRATIONS EVEN. NO SIGNS OF DISTRESS. CALL LIGHT IN REACH.
--- NOTE | 2018-08-12 04:07 | NUR ---
ADMINISTERED PRN NORCO FOR BACK PAIN 5/10 ON 0-10 PAIN SCALE. [facility].
--- NOTE | 2018-08-12 05:00 | NUR ---
PATIENT ASLEEP WITH EYES CLOSED LAYING IN SUPINE POSITION. HOB AT 30 DEGREES. O2 AT 2L VIA NC IN USE. RESPIRATIONS EVEN. NO SIGNS OF DISTRESS. CALL LIGHT IN REACH.
[2018-08-12 08:08] VITALS: BP 116/61
--- NOTE | 2018-08-12 08:15 | NUR ---
PT RESTING IN BED WITH EYES OPEN CALL LIGHT IN REACH NO PROBLEMS WILL MONITER
--- NOTE | 2018-08-12 12:15 | NUR ---
SITTING UP EATING LUNCH.
--- NOTE | 2018-08-12 18:09 | NUR ---
PT RESTING IN BED WITH EYES OPEN CALL LIGHT IN REACH WILL MONITER
[2018-08-12 19:00] VITALS: BP 112/62
--- NOTE | 2018-08-12 19:49 | NUR ---
ADMINISTERED PRN NORCO FOR CHRONIC PAIN 6/10 ENTIRE BACK. CALL LIGHT IN REACH.
--- NOTE | 2018-08-12 22:49 | NUR ---
GREETED PATIENT AND INTRODUCED MYSELF HER NURSE FOR THE EVENING. PATIENT STATES THAT HER PAIN IS 6/10. WILL ADMINISTER PRN PAIN MEDICATION
--- NOTE | 2018-08-13 00:21 | NUR ---
ASSISTED PATIENT WITH HOOKING UP [facility] BREATHING SYSTEM. CALL LIGHT IN REACH.
--- NOTE | 2018-08-13 02:51 | NUR ---
PATIENT ASLEEP LAYING IN SUPINE POSITION WITH TRILOGY BREATHING IN PLACE. RESPIRATIONS EVEN. NO SIGNS OF DISTRESS. CALL LIGHT IN REACH.
--- NOTE | 2018-08-13 03:45 | NUR ---
ASSISTED PATIENT TO BATHROOM USING WHEELCHAIR. PATIENT BACK TO BED AND REPOSTIONED FOR COMFORT. CALL LIGHT IN REACH.
--- NOTE | 2018-08-13 04:23 | NUR ---
PATIENT AWAKE AND REMOVED FROM TRILOGY AND PUT BACK ON O2 AT 2L VIA NC. RESPIRATIONS EVEN. CALL LIGHT IN REACH.
[2018-08-13 06:52] LABS: BASOPHILS 0.2 % (0-2); EOSINOPHILS 2.8 % (0-7); HEMATOCRIT 36.6 % (36.0-48.0); HEMOGLOBIN 11.8 g/dL (12-16); IMMATURE GRANULOCYTES 0.2 % (0-5); LYMPHOCYTES 22.8 % (15-50); MCH 30.6 pg (26.0-34.0); MCHC 32.2 g/dL (31.0-37.0); MCV 95.1 fL (80.0-100.0); MEAN PLATELET VOLUME 8.8 fL (7.4-10.4); MONOCYTES 6.8 % (2-11); NEUTROPHILS 67.2 % (40-80); PLATELET COUNT 350 10x3/uL (130-400); RBC 3.85 10x6/uL (4.00-5.40); WBC 9.2 10x3/uL (4.8-10.8)
[2018-08-13 06:59] LABS: CALCIUM 8.1 mg/dL (8.5-10.1); CHLORIDE - SERUM 103 mmol/L (98-107); CREATININE - SERUM 0.6 mg/dL (0.6-1.3); POTASSIUM - SERUM 3.5 mmol/L (3.5-5.1); SODIUM 139 mmol/L (136-145); eGFR NON AFRICAN AMERICAN > 90 mL/min (90-120)
[2018-08-13 07:02] LABS: CALC OSMOLALITY 283 mosm/kg (275-300); GLUCOSE 142 mg/dL (74-106); UREA NITROGEN 24 mg/dL (7-18)
[2018-08-13 07:47] VITALS: BP 112/59
--- NOTE | 2018-08-13 13:26 | NUR ---
Nutrition Follow Up: Pt stated that her appetite is good. RD encouraged pt to continue with good po intake. Diet: Regular; Ensure TID PO Intake: 94% meal avg Wt loss 1# since admit BM: 08/13/18 Meds and labs reviewed Rec continue current diet, supplement regimen. RD following.
--- NOTE | 2018-08-13 19:11 | NUR ---
PT UP IN WHEELCHAIR IN ROOM CALL LIGHT IN REACH WILL MONITER
--- NOTE | 2018-08-14 07:35 | NUR ---
RECEIVED REPORT. SITTING UP IN W/C ALERT AND ORIENTED X4. C/O GENERALIZED PAIN 12/20 REQUEST PAIN MEDICATION. DENIES ANY OTHER NEEDS. CONTINUES ON 2L VIA NC. CALL LIGHT WITHIN REACH, FALL PRECAUTIONS IN PLACE.
[2018-08-14 08:18] VITALS: BP 116/67
--- NOTE | 2018-08-14 08:52 | NUR ---
ADMININSTERED MORNING MEDS WHOLE WITHOUT DIFFICULTY. IN THERAPY GYM PARTICIPATING IN OT
--- NOTE | 2018-08-14 16:57 | NUR ---
SITTING UP IN BED WATCHING TV. DENIES ANY NEEDS OR PAIN. RR EVEN AND UNLABORED CONTINUES ON 2L VIA NC. CALL LIGHT WITHIN REACH
--- NOTE | 2018-08-14 20:10 | NUR ---
PATIENT AWAKE IN BED. BED IN LOW POSITION WITH CALL LIGHT WITHIN REACH. PATIENT DEMONSTRATES APPROPRIATE USE OF A CALL LIGHT. THE PATIENT APPEARS COMFORTABLE WITH NO QUESTIONS OR CONCERNS AT THIS TIME.
--- NOTE | 2018-08-15 03:40 | NUR ---
THE PATIENT APPEARS TO BE SLEEPING WITH BED IN LOW POSITION AND SIDERAILS X2. CALL LIGHT WITHIN REACH.
[2018-08-15 05:50] VITALS: BP 110/60
[2018-08-15 07:59] VITALS: BP 106/62
--- NOTE | 2018-08-15 10:13 | NUR ---
PATIENT SITTING UP IN WHEELCHAIR EATING BREAKFAST. ALERT AND ORIENTED. NO COMPLAINTS OF PAIN OR DISCOMFORT. ATE 100% OF BREAKFAST. O2 GOING AT 2L PER NC. WILL CONTINUE TO MONITOR.
--- NOTE | 2018-08-15 17:44 | NUR ---
PATIENT COMPLAINED OF BACK PAIN AT 12:30. MEDICATED WITH PRN NORCO WITH GOOD RESULTS. SITTING UP EATING SUPPER. CALL LIGHT WITHIN REACH. NO COMPLAINTS AT THIS TIME. WILL CONTINUE TO MONITOR.
[2018-08-15 18:43] VITALS: BP 112/61
--- NOTE | 2018-08-15 19:10 | NUR ---
THE PATIENT WAS WATCHING TELEVISION WHEN STAFF ENTERED HER AREA. BED IN THE LOW POSITION WITH SIDERAILS X2 AND CALL LIGHT WITHIN REACH. THE PATIENT WAS EDUCATED ON PAIN MEDICATION AND DEMONSTRATED UNDERSTANDING VIA TEACHBACK METHOD. THE PATIENT APPEARS COMFORTABLE WITH NO QUESTIONS OR CONCERNS AT THIS TIME.
[2018-08-16 03:21] VITALS: BP 110/74
--- NOTE | 2018-08-16 03:25 | NUR ---
PATIENT IS AWAKE TALKING TO STAFF. BED IN LOW POSITION WITH SIDERAILS X2 AND CALL LIGHT WITHIN REACH.
[2018-08-16 06:54] LABS: BASOPHILS 0.3 % (0-2); EOSINOPHILS 3.3 % (0-7); HEMOGLOBIN 11.5 g/dL (12-16); IMMATURE GRANULOCYTES 0.3 % (0-5); LYMPHOCYTES 22.8 % (15-50); MCH 30.3 pg (26.0-34.0); MCHC 31.1 g/dL (31.0-37.0); MCV 97.4 fL (80.0-100.0); MEAN PLATELET VOLUME 8.9 fL (7.4-10.4); MONOCYTES 8.8 % (2-11); NEUTROPHILS 64.5 % (40-80); PLATELET COUNT 310 10x3/uL (130-400); RDW 13.2 % (11.5-14.5); WBC 9.4 10x3/uL (4.8-10.8)
[2018-08-16 07:06] LABS: CALC OSMOLALITY 282 mosm/kg (275-300); CALCIUM 8.5 mg/dL (8.5-10.1); CARBON DIOXIDE 26.5 mmol/L (21.0-32.0); CHLORIDE - SERUM 105 mmol/L (98-107); CREATININE - SERUM 0.5 mg/dL (0.6-1.3); GLUCOSE 103 mg/dL (74-106); POTASSIUM - SERUM 3.9 mmol/L (3.5-5.1); SODIUM 141 mmol/L (136-145); UREA NITROGEN 17 mg/dL (7-18); eGFR NON AFRICAN AMERICAN > 90 mL/min (90-120)
--- NOTE | 2018-08-16 07:57 | NUR ---
SITTING UP IN WHEELCHAIR THIS MORNING EATING BREAKFAST. NO COMPLAINTS OF PAIN OR DISCOMFORT. CALL LIGHT WITHIN REACH. WILL CONTINUE TO MONITOR.
[2018-08-16 08:00] VITALS: BP 123/68
--- NOTE | 2018-08-16 17:53 | NUR ---
C/O OF PAIN THIS AFTERNOON AT 15:30. MEDICATED WITH PRN PAIN MEDICATION WITH GOOD RESULTS. TOLERATED THERAPY THIS AFTERNOON WELL. SITTING IN ROOMEATING SUPPER. NO COMPALINTS AT THIS TIME. CALL LIGHT WITHIN REACH. WILL CONTINUE TO MONITOR.
[2018-08-16 19:20] VITALS: BP 120/71
--- NOTE | 2018-08-16 19:20 | NUR ---
GREETED PATIENT AND INTRODUCED MYSELF HER NURSE. PATIENT IS LAYING IN BED IN SUPINE POSITION WITH 02 AT 2L VIA NC. DENIES ANY NEEDS AT THIS TIME. CALL LIGHT IN REACH.
--- NOTE | 2018-08-17 00:14 | NUR ---
PATIENT ASLEEP WITH EYES CLOSED LAYING IN SUPINE POSITION. HOB AT 35 DEGREES. RESPIRATIONS EVEN. NO SIGNS OF DISTRESS. 02 AT 2L VIA NC IN USE. CALL LIGHT IN REACH.
--- NOTE | 2018-08-17 03:05 | NUR ---
PATIENT ASLEEP WITH EYES CLOSED LAYING ON RIGHT SIDE. 02 AT 2L VIA NC IN USE. RESPIRATIONS EVEN. NO SIGNS OF DISTRESS. CALL LIGHT IN REACH.
[2018-08-17 08:00] VITALS: BP 106/57
--- NOTE | 2018-08-17 08:00 | NUR ---
EATING BREAKFAST.SHIFT ASSMT COMPLETED.
--- NOTE | 2018-08-17 12:26 | NUR ---
Nutrition Follow Up: Chart reviewed Diet: Regular; Ensure TID PO Intake: 100% meal avg BM: 08/15/18 Meds and labs reviewed Rec continue current diet, supplement regimen. RD following.
[2018-08-17 21:34] VITALS: BP 113/63
--- NOTE | 2018-08-18 07:42 | NUR ---
PT RESTING IN BED WITH EYES OPEN CALL LIGHT IN REACH WILL MONITER
[2018-08-18 07:44] LABS: BASOPHILS 0.4 % (0-2); EOSINOPHILS 3.1 % (0-7); HEMATOCRIT 35.3 % (36.0-48.0); HEMOGLOBIN 11.2 g/dL (12-16); IMMATURE GRANULOCYTES 0.3 % (0-5); LYMPHOCYTES 27.6 % (15-50); MCH 30.1 pg (26.0-34.0); MCHC 31.7 g/dL (31.0-37.0); MCV 94.9 fL (80.0-100.0); MEAN PLATELET VOLUME 8.9 fL (7.4-10.4); MONOCYTES 10.7 % (2-11); NEUTROPHILS 57.9 % (40-80); PLATELET COUNT 288 10x3/uL (130-400); RBC 3.72 10x6/uL (4.00-5.40); RDW 12.9 % (11.5-14.5); WBC 7.2 10x3/uL (4.8-10.8)
--- NOTE | 2018-08-18 07:46 | NUR ---
ALERT. SITTING UP IN CHAIR. NO C/O PAIN. CL IN REACH.
[2018-08-18 08:00] VITALS: BP 115/60
[2018-08-18 08:00] LABS: CALC OSMOLALITY 278 mosm/kg (275-300); CALCIUM 8.6 mg/dL (8.5-10.1); CARBON DIOXIDE 28.8 mmol/L (21.0-32.0); CHLORIDE - SERUM 104 mmol/L (98-107); CREATININE - SERUM 0.5 mg/dL (0.6-1.3); GLUCOSE 102 mg/dL (74-106); POTASSIUM - SERUM 4.6 mmol/L (3.5-5.1); SODIUM 140 mmol/L (136-145); UREA NITROGEN 13 mg/dL (7-18); eGFR NON AFRICAN AMERICAN > 90 mL/min (90-120)
--- NOTE | 2018-08-18 14:24 | NUR ---
PATIENT AT REST ON ROOM AIR 88%, APPLIED 2 L O2 PER NC AT REST ST 94 % ( Dx. COPD WITH RESPIRATORY FAILURE )
--- NOTE | 2018-08-18 15:15 | NUR ---
PATIENT DISCHARGING HOME TODAY. [facility] WILL PROVIDE THERAPY. [facility] WILL DELIVER O2 TO PATIENT. DR. MASTERS 08/25/18 @ 2:30. PATIENT CHOICE FORM FOR HOME HEALTH AND [facility] FORMS SIGNED AND FILED IN CHART AND COPY GIVEN TO PATIENT. DISCHARGE INSTRUCTIONS WITH [facility] [employer] FAXED TO PCP AND TO HOME HEALTH.
--- NOTE | 2018-08-18 17:12 | NUR ---
PT DISCHARGE FROM REHAB VIA WHEELCHAIR WITH FRIEND PT REFUSED ANY MEDS BEING CALLED IN DISCHARGE SUMMARY AND MEDS REVIEWD WITH PT CALL LIGHT IN REACH EDDI PERDOMO
--- NOTE | 2018-08-25 12:19 | RHP ---
PATIENT: DAVIDSON RIZZO MEDICAL RECORD: [id number] ACCOUNT: [id number] LOCATION:[facility] D.1119 : 53 ADMISSION DATE: 08/10/18 REHABILITATION HISTORY AND PHYSICAL EXAMINATION POST ADMISSION PHYSICIAN EXAMINATION DATE OF ADMISSION: 08/10/2018 ADMITTING DIAGNOSIS: Acute hypercapnic respiratory failure. HISTORY OF PRESENT ILLNESS: The patient is a 63-year-old female patient admitted to inpatient rehab with a COPD impairment group of acute hypoxic and hypercapnic respiratory failure. She has got a history of pretty severe COPD. She got sick on 08/07/2018, could not breathe, was admitted with hapbd-dw-mhmbhkg hypoxia hypercapnic respiratory failure. The course progressively worsened. Her therapy was no longer sufficient and she required mechanical ventilation due to xizuh-ws-mqzyhaj respiratory failure, inconsequential COPD. She will require nocturnal and daytime noninvasive volume ventilation b.i.d. for 2 hours during her rehab stay and upon discharge at home BiPAP will not be sufficient due to severity of her condition at this time. She continues to smoke 15 cigarettes a day. She was in the ICU here in May for several days was intubated. The patient has COPD, chronic hypoxic respiratory failure, hypertension, gastroesophageal reflux disease, emphysema, protein-calorie malnutrition, vitamin B and D deficiencies, hyperlipidemia and will require management of a physician at least 3-5 days per week and 24-hour nursing. BARRIERS TO DISCHARGE: Include new onset O2 requirement of 3 liters, new-onset noninvasive ventilation, self-care deficits, respiratory conservation education during ambulation, poor nutritional status and impaired mobility prior to her current admission. The patient lived in her own home. She was the caregiver of her brother who is on hospice care. She was driving her own car and shopping for groceries. She is completely independent with ambulation and ADLs. She is currently min-to-mod assist with ADLs, mod assist with ambulation requiring several rest stops. The patient will require intensive therapy to return back to her prior level of functioning if she has any chance of returning back home. COMORBIDITIES: In this patient include chronic backache, osteoarthritis, osteoporosis, protein-calorie malnutrition, hyperlipidemia, vitamin deficiencies, coronary artery disease, COPD, emphysema, tobacco dependence and chronic hypoxic hypercapnic respiratory failure. PAST MEDICAL HISTORY: Significant for COPD, tobacco dependence, hypertension, coronary artery disease, gastroesophageal reflux disease, chronic backache. PAST SURGICAL HISTORY: Includes cholecystectomy and she has had a cardiac catheterization and stent placement in the past. ALLERGIES: LISINOPRIL. CURRENT MEDICATIONS: Include Tudorza one actuation b.i.d., Pravachol 40 mg at bedtime, Protonix 40 mg daily, Advair 2 puffs b.i.d. of the HFA, vitamin B12 500 mcg daily, Plavix 75 mg daily, aspirin 81 mg daily, propranolol 40 mg b.i.d., melatonin 3 mg at bedtime, [place] 5/325 one tab every 4 hours p.r.n., Mucinex 600 mg b.i.d., vitamin D 1000 units b.i.d., Soma 350 b.i.d. and Ventolin inhaler as HISTORY AND PHYSICAL [id number] DAVIDSON RIZZO. HABITS: Does have a history of tobacco use. FAMILY HISTORY: Noncontributory. SOCIAL HISTORY: The patient hopes to return back home and get back to her prior level of functioning. REVIEW OF SYSTEMS: GENERAL: Does complain of weakness and fatigue. HEENT: Does complain of some cold, cough, and congestion at times. CARDIOVASCULAR: Denies any chest pain. LUNGS: Does complain of shortness of breath, especially with ambulation. PHYSICAL EXAMINATION: VITAL SIGNS: Stable. Her temperature is 98.8, pulse is 66, respirations 18, blood pressure 139/64, sat is 94%. GENERAL: Very thin female, in no acute distress, alert upon exam. HEENT: Normocephalic and atraumatic. Mucosa moist. NECK: Supple. No lymphadenopathy. LUNGS: Coarse breath sounds bilaterally with decreased breath sounds in both bases. HEART: Regular rate and rhythm. No murmurs, rubs or gallops. ABDOMEN: Benign. EXTREMITIES: No clubbing, cyanosis or edema. NEUROLOGIC: She does have noted weakness. LABORATORY DATA: White count is 10.8, H&H of 11 and 36, and platelet count is 376. Her sodium is 139, potassium 4.0, BUN and creatinine of 14 and 0.5 and blood sugar is noted to be 90. ASSESSMENT: This is a 63-year-old female patient admitted to rehab with a working diagnosis of hypoxic hypercapnic respiratory failure. The patient has potential to make improvement. We will institute the following multidisciplinary therapies include, but not limited to physical, occupational, respiratory, speech, nutritional services, prosthetics and orthotics. Given her complex medical condition and risk for more complications, rehabilitation services cannot be provided at a low level of care such as a skilled nurse facility. PLAN: 1. Admit to [facility] for intensive inpatient therapy to include the following disciplines: A. Physical therapy to improve gait, all transfer skills and bed mobility to a modified independent level. B. Occupational therapy to a modified independent level. C. Case management to assist with discharge planning and placement options. D. Nutrition to assist with nutritional needs. E. Rehabilitation nursing to assist in monitoring the patient's underlying medical conditions and to assist with any type of bowel and bladder management. 2. The patient's current medication and medical care will be continued. 3. I will update FIM scores as available. 4. We will continue on current breathing therapies at this time and consult pulmonary if necessary. HISTORY AND PHYSICAL [id number] DAVIDSON RIZZO 5. I am going to follow her up today at noon with the care team and we discussed her estimated length of stay and treatment options. TRANSINT:[id number] Voice Confirmation ID: [id number] DOCUMENT ID: [id number] 08/17/18 Edited for connie GLEZ. AMARIS notes whether there has been none or any medical/functional change since admission: - No change since preadmission screen. AMARIS attests patient continues to be appropriate for IRF: - Continues to be appropriate. SANDRA RIVERA MD at 1219 CC: [id number] DICTATION DATE: 08/11/18 0857 [employer] [place]: 08/11/18 0952 DIS IN 08/18/18 [facility] [address] [place] [address]
== END 2018-08-18 17:14 | disposition home health service (06) | DRG 189 ==
LOC: D.REHAB 19:00
PROVIDERS: ADMIT Emergency Medicine
DX: J96.21 Acute and chronic respiratory failure with hypoxia (principal); E46 Unspecified protein-calorie malnutrition; J96.02 Acute respiratory failure with hypercapnia; M19.90 Unspecified osteoarthritis, unspecified site; E78.5 Hyperlipidemia, unspecified; I25.10 Atherosclerotic heart disease of native coronary artery without angina pectoris; J43.9 Emphysema, unspecified; F17.200 Nicotine dependence, unspecified, uncomplicated; I10 Essential (primary) hypertension; K21.9 Gastro-esophageal reflux disease without esophagitis; G89.29 Other chronic pain; E53.8 Deficiency of other specified B group vitamins; E55.9 Vitamin D deficiency, unspecified

== ENCOUNTER 2018-08-31 14:22 | Inpatient (IN) | payer MEDICARE ==
[2018-08-31] VITALS (7 sets, daily range): BP systolic 102–159; BP diastolic 68–94
[~2018-08-31] VITALS: Ht 162.6 cm; Wt 37.0 kg
[2018-08-31 14:53] LABS: BASOPHILS 0.2 % (0-2); EOSINOPHILS 0.5 % (0-7); HEMOGLOBIN 14.3 g/dL (12-16); IMMATURE GRANULOCYTES 0.3 % (0-5); LYMPHOCYTES 17.6 % (15-50); MCH 30.8 pg (26.0-34.0); MCHC 32.5 g/dL (31.0-37.0); MCV 94.8 fL (80.0-100.0); MEAN PLATELET VOLUME 9.1 fL (7.4-10.4); MONOCYTES 7.3 % (2-11); NEUTROPHILS 74.1 % (40-80); RBC 4.64 10x6/uL (4.00-5.40); RDW 12.7 % (11.5-14.5)
[2018-08-31 15:02] LABS: INR 0.97 (0.85-1.17); PROTIME 12.4 SECONDS (11.6-15.0)
[2018-08-31 15:13] LABS: ALBUMIN 3.8 g/dL (3.4-5.0); ALKALINE PHOSPHATASE 127 U/L (46-116); ALT (SGPT) 44 U/L (10-68); BILIRUBIN - TOTAL 0.31 mg/dL (0.2-1.3); CALC OSMOLALITY 279 mosm/kg (275-300); CALCIUM 8.9 mg/dL (8.5-10.1); CARBON DIOXIDE 27.1 mmol/L (21.0-32.0); CHLORIDE - SERUM 101 mmol/L (98-107); CREATININE - SERUM 0.6 mg/dL (0.6-1.3); GLUCOSE 137 mg/dL (74-106); POTASSIUM - SERUM 4.5 mmol/L (3.5-5.1); PROTEIN - SERUM 7.6 g/dL (6.4-8.2); SODIUM 138 mmol/L (136-145); UREA NITROGEN 19 mg/dL (7-18); eGFR NON AFRICAN AMERICAN > 90 mL/min (90-120)
[2018-08-31 15:15] LABS: PLATELET COUNT 354 10x3/uL (130-400)
[2018-08-31 15:23] LABS: CKMB 2.5 U/L (0.0-3.6); CREATINE KINASE 87 UL (21-215); PRO BNP 751 pg/mL (0-125); TROPONIN-I 0.058 ng/mL (0.000-0.060)
--- NOTE | 2018-08-31 17:00 | NUR ---
PT ASSISTED WITH BEDSIDE TOILET.
--- NOTE | 2018-08-31 17:56 | NUR ---
PT GIVEN AHA DINNER TRAY, BIPAP REMOVED FOR APPROX. 2 MIN TO ALLOW PT TO CONSUME SEVERAL BITES OF MEAL TRAY AND THEN BIPAP REAPPLIED. CALL LIGHT IN REACH, FAMILY MEMBER AT THE BEDSIDE. WILL CONTIUE TO MONITOR. PT AWARE SHE IS BEING ADMITTED TO [facility], AWAITING BED ASSIGNMENT AT THIS TIME.
--- NOTE | 2018-08-31 19:10 | NUR ---
HAND-OFF REPORT GIVEN TO XIMENA KWONG USING SBAR COMMUNICATION.
--- NOTE | 2018-08-31 20:02 | NUR ---
awake and alert, sitting up talking with family, NC in place, pulse ox 97%, no distress noted.
[2018-09-01] VITALS (7 sets, daily range): BP systolic 82–152; BP diastolic 54–97; Ht 162.6 cm; Wt 37.0 kg
--- NOTE | 2018-09-01 02:31 | NUR ---
PT RESTING IN BED, RESTLESS AND UNABLE TO SLEEP WELL. PT HAS BIPAP ON, HOB ABOVE 40 DEGREES. PT IS AAO, DENIES ANY NEEDS AT THIS TIME. SWAB CAP APPLIED TO LEFT ARM IV. PT BEDLOW AND CALL LIGHT IN REACH. WILL CPOC
--- NOTE | 2018-09-01 09:00 | NUR ---
PT RESTING IN BED. ATE 100% OF BREAKFAST. AM MEDICATIONS GIVEN ORDERED. NO COMPLICATIONS NOTED. PATIENT REPORTS THAT SHE HAS GOTTEN OOB TO USE THE RESTROOM, PATIENT IS NOT A FALL RISK AT THIS TIME. SHIFT ASSSESSMENT PERFORMED. DENIES ANY PAIN AT THIS TIME, DENIES NEEDS AT THIS TIME, CALL LIGHT WITHIN REACH. WILL CONT TO FOLLOW PLAN OF CARE
--- NOTE | 2018-09-01 10:00 | NUR ---
PATIENT REQUESTS ATIVAN PRN. STATES SHE RECENTLY HAS STARTED ATIVAN AT HOME DUE TO ANXIETY. PER , PATIENT IS ON NORCO AND SOMA AND HE DOES NOT WANT TO ADD ATIVAN. PATIENT VERBALIZES UNDERSTANDING.
--- NOTE | 2018-09-01 19:45 | NUR ---
RESUMING PT CARE. PT LAYING IN BED WITH EYES CLOSED RESTING COMFORTABLY. BED IN LOW POSITION WITH CALL LIGHT IN REACH. SIDE RAILS UP X 2. WILL CONTINUE TO MONITOR PT AND FOLLOW PLAN OF CARE.
[2018-09-02 01:17] VITALS: BP 134/76
[2018-09-02 06:15] VITALS: BP 123/71
[2018-09-02 08:33] VITALS: BP 130/67
--- NOTE | 2018-09-02 09:21 | NUR ---
RESP UL ON . IV SL INTACT. CALL LIGHT IN REACH. WILL CONT. PLAN OF CARE.
--- NOTE | 2018-09-02 09:32 | NUR ---
ASSESSMENT DONE. DENIES NEEDS
[2018-09-02 11:47] VITALS: BP 125/72
--- NOTE | 2018-09-02 12:39 | NUR ---
AGREE WITH ASSESMENT.
[2018-09-02 15:01] VITALS: BP 123/63
--- NOTE | 2018-09-02 19:35 | NUR ---
RESUMING PT CARE. PT ALERT LAYING IN BED WATCHING TV. PT HAS A IV IN THE LEFT HAND THAT IS SALINE LOCK. NO SIGNS OF DISTRESS NOTED AT THIS TIME. BED IN LOW POSITION WITH CALL LIGHT IN REACH. WILL CONTINUE TO MONITOR PT AND FOLLOW PLAN OF CARE.
[2018-09-02 20:00] VITALS: BP 97/51
[2018-09-03] VITALS (7 sets, daily range): BP systolic 98–120; BP diastolic 50–66
--- NOTE | 2018-09-03 04:00 | NUR ---
CIVIL ESTIMATOR AT BEDSIDE TO OBTAIN VITALS, CALL LIGHT IN REACH. WILL CONTINUE WITH PLAN OF CARE.
--- NOTE | 2018-09-03 04:40 | NUR ---
PT IS ALERT LAYING IN BED WATCHING TV. NO C/O VOICED AT THIS TIME. BED IN LOW POSITION WITH CALL LIGHT IN REACH. WILL CONTINUE TO MONITOR PT AND FOLLOW PLAN OF CARE.
--- NOTE | 2018-09-03 08:27 | NUR ---
PT SITTING UP IN BED. DENIES ANY NEEDS. NO S/S OF ACUTE DISTRESS. CL IN PLACE.
--- NOTE | 2018-09-03 13:31 | NUR ---
Nutrition Follow Up: Pt stated that her appetite is good and she is eating as much as she can. She said that she is drinking ~2 Ensure each day and she prefers luca and straw. RD encouraged pt to continue increasing po intake as able and to make staff aware of any food preferences. Diet: Regular; Ensure TID PO Intake: 61% meal avg Wt stable No BM since admit Labs reviewed Meds noted including Solu Medrol, Lasix Rec continue current diet. Will change Ensure to BID per pt request. RD following.
--- NOTE | 2018-09-03 18:14 | NUR ---
PT SITTING UP IN BED WATCHING TV. CO OF BACK PAIN. NORCO GIVEN PER MD ORDER. NO S/S OF ACUTE DISTRESS. CL IN PLACE.
--- NOTE | 2018-09-03 20:15 | NUR ---
RESUMING PT CARE. PT ALERT LAYING IN BED WATCHING TV. NO C/O VOCIED AT THIS TIME. BED IN LOW POSITION WITH CALL LIGHT IN REACH. WILL CONTINUE TO MONITOR PT AND FOLLOW PLAN OF CARE.
[2018-09-04 03:55] VITALS: BP 134/61
--- NOTE | 2018-09-04 04:24 | NUR ---
I AGREE WITH PRIOR ASSESSMENT.
--- NOTE | 2018-09-04 08:21 | NUR ---
PT SITTING UP IN BED EATING BREAKFAST. NO S/S OF ACUTE DISTRESS. CL IN PLACE.
[2018-09-04 09:17] VITALS: BP 118/64
[2018-09-04 11:12] VITALS: BP 130/70
[2018-09-04 15:33] VITALS: BP 115/64
--- NOTE | 2018-09-04 17:57 | NUR ---
DUE TO PT CURRENT RESP STATUS DR PASTOR SUGGEST TO DECREASEN NORCO ORDER TO Q8PRN. SPOKE WITH DR. GUERRERO BROWN NURSE ABOUT THE SUGGESTION. NEW ORDER FOR NORCO 5/325MG Q 8 PRN GIVEN. PT AWARE AND IN AGREEMENT. NO S/S OF ACUTE DISTRESS.
--- NOTE | 2018-09-04 19:25 | NUR ---
PT SITTING UP IN BED WATCHING TV. NO S/S OF ACUTE DISTRESS. EDUCATION ON SPACING PAIN MEDS GIVEN. PT "UNDERSTANDS". CL IN PLACE.
[2018-09-04 20:10] VITALS: BP 136/70
[2018-09-04 23:55] VITALS: BP 113/59
[2018-09-05 03:55] VITALS: BP 100/60
[2018-09-05 04:44] LABS: BASOPHILS 0.1 % (0-2); EOSINOPHILS 0.1 % (0-7); HEMATOCRIT 37.4 % (36.0-48.0); HEMOGLOBIN 11.9 g/dL (12-16); IMMATURE GRANULOCYTES 0.3 % (0-5); LYMPHOCYTES 26.4 % (15-50); MCH 30.1 pg (26.0-34.0); MCHC 31.8 g/dL (31.0-37.0); MCV 94.7 fL (80.0-100.0); MEAN PLATELET VOLUME 8.8 fL (7.4-10.4); MONOCYTES 7.9 % (2-11); NEUTROPHILS 65.2 % (40-80); PLATELET COUNT 339 10x3/uL (130-400); RBC 3.95 10x6/uL (4.00-5.40); RDW 12.7 % (11.5-14.5); WBC 13.6 10x3/uL (4.8-10.8)
[2018-09-05 04:59] LABS: CALC OSMOLALITY 285 mosm/kg (275-300); CALCIUM 8.6 mg/dL (8.5-10.1); CARBON DIOXIDE 33.4 mmol/L (21.0-32.0); CHLORIDE - SERUM 102 mmol/L (98-107); CREATININE - SERUM 0.6 mg/dL (0.6-1.3); GLUCOSE 105 mg/dL (74-106); POTASSIUM - SERUM 3.7 mmol/L (3.5-5.1); SODIUM 142 mmol/L (136-145); UREA NITROGEN 21 mg/dL (7-18); eGFR NON AFRICAN AMERICAN > 90 mL/min (90-120)
--- NOTE | 2018-09-05 08:01 | NUR ---
PATIENT IS ALERT/ORIENT. PRN PAIN MEDICATION GIVEN PER PATIENT REQUEST. STATES SHE THINKS SHE IS GOING TO BE DISCHARGED TODAY. CALL LIGHT WITHIN REACH. WILL CONTINUE TO MONITOR
[2018-09-05 08:50] VITALS: BP 107/59
--- NOTE | 2018-09-05 10:45 | NUR ---
DR MASTERS INTO SEE PATIENT. NEW ORDERS RECEIVED
[2018-09-05] MEDS ORDERED: HYDROCODON-ACE1 EAC7 PO (10:48)
[2018-09-05] MEDS ORDERED: ALBUTEROL1.25 MG/3 INH (10:49)
[2018-09-05] MEDS ORDERED: BROVANA15 MCG/2 M INH (10:49)
[2018-09-05] MEDS ORDERED: ATROVENT 0.02%2.5 ML UPD (10:50)
[2018-09-05] MEDS ORDERED: SOMA350 MG PO (10:50)
[2018-09-05] MEDS ORDERED: STERAPRED DS 1010 MG PO (10:54)
[2018-09-05 12:21] VITALS: BP 110/55
--- NOTE | 2018-09-05 12:32 | MORECARE ---
CASE MANAGEMENT DISCHARGE SUMMARY PATIENT: DAVIDSON RIZZO ZAMZAM UNIT: [id number] ADM DATE: 08/31/18 AGE: 63 : 54 SEX: F ROOM/BED: D.2103 AUTHOR: NAYELI ZEPEDA PHYSICIAN: REFERRING PHYSICIAN: JAZMIN MASTERS MD DATE OF SERVICE: 09/05/18 Discharge Plan Patient Name: DAVIDSON RIZZO Facility: [facility]:[place] : 1955 Planned Disposition: Home Anticipated Discharge Date: 09/05/18 Discharge Date: Expected LOS: 5 Initial Reviewer: [email or web address] Initial Review Date: 09/05/2018 Generated: 09/05/18 1:32 pm DCPIA - Discharge Planning Initial Assessment Updated by [email or web address]: Nancy Caraballo on 09/05/18 12:31 pm * Is the patient Alert and Oriented? Yes * PCP GUERRERO * Preadmission Environment Home Alone * ADLs Independent * Equipment Nebulizer Oxygen Walker * Other Equipment TRILOGY * List name and contact numbers for known caregivers / representatives who currently or will assist patient after discharge: RULA, * Community resources currently utilized Home Health * Please name any agencies selected above. [facility] * Additional services required to return to the preadmission environment? No * Can the patient safely return to the preadmission environment? Yes * Has this patient been hospitalized within the prior 30 days at any hospital? Yes External Providers External Provider: [facility] Contact Date: Service Request Date: Service Type: Resolution: Reviewer: Comments: Patient Name: DAVIDSON RIZZO Page [phone] at 1232 All edits/amendments must be made on the electronic document DICTATION DATE: 09/05/18 1232 SCIENTIFIC DIRECTOR: MARIA INES 09/05/18 1232 RPT#: [id number] DC DATE: STATUS: ADM IN [facility] [address] [place] [address] END OF REPORT
--- NOTE | 2018-09-05 12:39 | MORECARE ---
CASE MANAGEMENT DISCHARGE SUMMARY PATIENT: DAVIDSON RIZZO ZAMZAM UNIT: [id number] ADM DATE: 08/31/18 AGE: 63 : 54 SEX: F ROOM/BED: D.2101 AUTHOR: DUANE,DOC PHYSICIAN: REFERRING PHYSICIAN: JAZMIN MASTERS MD DATE OF SERVICE: 09/05/18 Discharge Plan Patient Name: DAVIDSON RIZZO Facility: [facility]:[place] : 1955 Planned Disposition: Home Anticipated Discharge Date: 09/05/18 Discharge Date: Expected LOS: 5 Initial Reviewer: [email or web address] Initial Review Date: 09/05/2018 Generated: 09/05/18 1:39 pm Comments DCP- Discharge Planning Updated by [email or web address]: Nancy Caraballo on 09/05/18 11:[address] Patient Name: DAVIDSON RIZZO Admission Status: ER Accout number: [id number] Admission Date: 08-31-2018 : 1955 Admission Diagnosis:CHRONIC OBSTRUCTIVE PULMONARY DISEASE W (ACUTE) EXACERB Attending: JAZMIN MASTERS Current LOS: 5 Anticipated DC Date: 09-05-2018 Planned Disposition: Home Primary Insurance: MEDICARE A & B Discharge Planning Comments: CM MET WITH PATIENT ABOUT DC PLANNING. HAS EQUIPMENT AT HOME AND USES [facility] . CM SPOKE WITH [facility] AND THEY WILL SEE HER WITHIN THE NEXT FEW DAYS, STATES THEY WILL RESUME CARE. CM WILL FAX DOCUMENTS TO THEM. IM SIGNED. PATIENT DENIES NEEDS AT THIS TIME. CM WILL FOLLOW AND ASSIST NEEDED WITH DC PLANNING/NEEDS. Enterprise Application Architect: Nancy Caraballo DCPIA - Discharge Planning Initial Assessment Updated by [email or web address]: Nancy Caraballo on 09/05/18 12:31 pm * Is the patient Alert and Oriented? Yes * PCP GUERRERO * Preadmission Environment Home Alone * ADLs Independent * Equipment Nebulizer Oxygen Walker * Other Equipment TRILOGY * List name and contact numbers for known caregivers / representatives who currently or will assist patient after discharge: RULA [phone] * Community resources currently utilized Home Health * Please name any agencies selected above. [facility] * Additional services required to return to the preadmission environment? No * Can the patient safely return to the preadmission environment? Yes * Has this patient been hospitalized within the prior 30 days at any hospital? Yes Coverage Notice Reviewer: [email or web address] Larry Caraballo Notice Issued Date-Time: 09/05/2018 12:17 Notice Type: IM Discharge Notice Notice Delivered To: Patient Relationship to Patient: Self Press Set Up Name: Delivery Method: HAND - Hand Delivered Erika Days: Prior Verbal Notification: Recipient Understood Notice: Yes Recipient Signature: Yes Med Rec Note Co-signed by Attending: Coverage Notice Comment: Last DP export: 09/05/18 11:32 a Patient Name: DAVIDSON RIZZO Page [phone] at 1239 All edits/amendments must be made on the electronic document DICTATION DATE: 09/05/18 1239 PR INTERN: MARIA INES 09/05/18 1239 RPT#: [id number] DC DATE: STATUS: ADM IN [facility] [address] [place] [address] END OF REPORT
--- NOTE | 2018-09-05 12:58 | MORECARE ---
CASE MANAGEMENT DISCHARGE SUMMARY PATIENT: DAVIDSON RIZZO ZAMZAM UNIT: [id number] ADM DATE: 08/31/18 AGE: 63 : 54 SEX: F ROOM/BED: D.2102 AUTHOR: DUANE,DOC PHYSICIAN: REFERRING PHYSICIAN: JAZMIN MASTERS MD DATE OF SERVICE: 09/05/18 Discharge Plan Patient Name: DAVIDSON RIZZO Facility: [facility]:[place] : 1955 Planned Disposition: Home Anticipated Discharge Date: 09/05/18 Discharge Date: Expected LOS: 5 Initial Reviewer: [email or web address] Initial Review Date: 09/05/2018 Generated: 09/05/18 1:58 pm Comments DCP- Discharge Planning Updated by [email or web address]: Nancy Caraballo on 09/05/18 11:[address] Patient Name: DAVIDSON RIZZO Admission Status: ER Accout number: [id number] Admission Date: 08-31-2018 : 1955 Admission Diagnosis:CHRONIC OBSTRUCTIVE PULMONARY DISEASE W (ACUTE) EXACERB Attending: JAZMIN MASTERS Current LOS: 5 Anticipated DC Date: 09-05-2018 Planned Disposition: Home Primary Insurance: MEDICARE A & B Discharge Planning Comments: CM MET WITH PATIENT ABOUT DC PLANNING. HAS EQUIPMENT AT HOME AND USES [facility] . CM SPOKE WITH [facility] AND THEY WILL SEE HER WITHIN THE NEXT FEW DAYS, STATES THEY WILL RESUME CARE. CM WILL FAX DOCUMENTS TO THEM. IM SIGNED. PATIENT DENIES NEEDS AT THIS TIME. CM WILL FOLLOW AND ASSIST NEEDED WITH DC PLANNING/NEEDS. Bottom Cager: Nancy Caraballo DCPIA - Discharge Planning Initial Assessment Updated by [email or web address]: Nancy Caraballo on 09/05/18 12:31 pm * Is the patient Alert and Oriented? Yes * PCP GUERRERO * Preadmission Environment Home Alone * ADLs Independent * Equipment Nebulizer Oxygen Walker * Other Equipment TRILOGY * List name and contact numbers for known caregivers / representatives who currently or will assist patient after discharge: RULA [phone] * Community resources currently utilized Home Health * Please name any agencies selected above. [facility] * Additional services required to return to the preadmission environment? No * Can the patient safely return to the preadmission environment? Yes * Has this patient been hospitalized within the prior 30 days at any hospital? Yes Coverage Notice Reviewer: [email or web address] Larry Caraballo Notice Issued Date-Time: 09/05/2018 12:17 Notice Type: IM Discharge Notice Notice Delivered To: Patient Relationship to Patient: Self Playground Equipment Erector Name: Delivery Method: HAND - Hand Delivered Erika Days: Prior Verbal Notification: Recipient Understood Notice: Yes Recipient Signature: Yes Med Rec Note Co-signed by Attending: Coverage Notice Comment: Last DP export: 09/05/18 11:39 a Patient Name: DAVIDSON RIZZO Page [phone] at 1258 All edits/amendments must be made on the electronic document DICTATION DATE: 09/05/181257 OR NURSE MANAGER: MARIA INES 09/05/18 1258 RPT#: [id number] DC DATE: STATUS: ADM IN [facility] [address] [place] [address] END OF REPORT
--- NOTE | 2018-09-05 13:08 | NUR ---
SALINE LOCK REMOVED FROM LEFT WRIST. DISCHARGE INSTRUCTIONS GONE OVER WITH PATIENT. PATIENT CALLING FAMILY MEMBER TO TAKE HER HOME
--- NOTE | 2018-09-05 13:35 | NUR ---
FAMILY MEMBER HER TO TAKE PATIENT HOME
--- NOTE | 2018-09-06 09:23 | MORECARE ---
CASE MANAGEMENT DISCHARGE SUMMARY PATIENT: DAVIDSON RIZZO ZAMZAM UNIT: [id number] ADM DATE: 08/31/18 AGE: 63 : 53 SEX: F ROOM/BED: D.2103 AUTHOR: DUANE,DOC PHYSICIAN: REFERRING PHYSICIAN: JAZMIN MASTERS MD DATE OF SERVICE: 09/06/18 Discharge Plan Patient Name: DAVIDSON RIZZO Facility: [facility]:[place] : 1955 Planned Disposition: Home with Home Health Anticipated Discharge Date: 09/05/18 Discharge Date: 09/05/2018 Expected LOS: 5 Initial Reviewer: [email or web address] Initial Review Date: 09/05/2018 Generated: 09/06/18 10:22 am Comments DCP- Discharge Planning Updated by [email or web address]: Nancy Caraballo on 09/05/18 11:[address] Patient Name: DAVIDSON RIZZO Admission Status: ER Accout number: [id number] Admission Date: 08-31-2018 : 1955 Admission Diagnosis:CHRONIC OBSTRUCTIVE PULMONARY DISEASE W (ACUTE) EXACERB Attending: JAZMIN MASTERS Current LOS: 5 Anticipated DC Date: 09-05-2018 Planned Disposition: Home Primary Insurance: MEDICARE A & B Discharge Planning Comments: CM MET WITH PATIENT ABOUT DC PLANNING. HAS EQUIPMENT AT HOME AND USES [employer] . CM SPOKE WITH [facility] AND THEY WILL SEE HER WITHIN THE NEXT FEW DAYS, STATES THEY WILL RESUME CARE. CM WILL FAX DOCUMENTS TO THEM. IM SIGNED. PATIENT DENIES NEEDS AT THIS TIME. CM WILL FOLLOW AND ASSIST NEEDED WITH DC PLANNING/NEEDS. Boilermaker Mechanic: Nancy Caraballo DCPIA - Discharge Planning Initial Assessment Updated by [email or web address]: Nancy Caraballo on 09/05/18 12:31 pm * Is the patient Alert and Oriented? Yes * PCP GUERRERO * Preadmission Environment Home Alone * ADLs Independent * Equipment Nebulizer Oxygen Walker * Other Equipment TRILOGY * List name and contact numbers for known caregivers / representatives who currently or will assist patient after discharge: RULA [phone] * Community resources currently utilized Home Health * Please name any agencies selected above. [facility] * Additional services required to return to the preadmission environment? No * Can the patient safely return to the preadmission environment? Yes * Has this patient been hospitalized within the prior 30 days at any hospital? Yes Coverage Notice Reviewer: [email or web address] Larry Caraballo Notice Issued Date-Time: 09/05/2018 12:17 Notice Type: IM Discharge Notice Notice Delivered To: Patient Relationship to Patient: Self Vineyard Worker Name: Delivery Method: HAND - Hand Delivered Erika Days: Prior Verbal Notification: Recipient Understood Notice: Yes Recipient Signature: Yes Med Rec Note Co-signed by Attending: Coverage Notice Comment: Last DP export: 09/05/18 11:58 a Patient Name: DAVIDSON RIZZO Page [phone] at 0923 All edits/amendments must be made on the electronic document DICTATION DATE: 09/06/18921 HEEL COMPRESSOR: MARIA INES 09/06/18921 RPT#: [id number] DC DATE:09/05/18 STATUS: DIS IN [facility] [address] [place] [address] END OF REPORT
== END 2018-09-05 13:42 | disposition home health service (06) | DRG 189 ==
LOC: D.ER 14:22 → D.M2 15:34 → D.EDHOLD 15:34 → D.M2 19:51
PROVIDERS: Emergency Medicine; ADMIT Family Medicine
DX: J96.22 Acute and chronic respiratory failure with hypercapnia (principal); E46 Unspecified protein-calorie malnutrition; Z68.1 Body mass index [BMI] 19.9 or less, adult; J96.21 Acute and chronic respiratory failure with hypoxia; J43.9 Emphysema, unspecified; I25.10 Atherosclerotic heart disease of native coronary artery without angina pectoris; M19.90 Unspecified osteoarthritis, unspecified site; M81.0 Age-related osteoporosis without current pathological fracture; K21.9 Gastro-esophageal reflux disease without esophagitis; E53.8 Deficiency of other specified B group vitamins; E55.9 Vitamin D deficiency, unspecified; E78.5 Hyperlipidemia, unspecified; I10 Essential (primary) hypertension; F17.200 Nicotine dependence, unspecified, uncomplicated

== ENCOUNTER 2018-10-21 11:11 | Emergency (ER) | payer MEDICARE ==
[~2018-10-21] VITALS: Ht 162.6 cm; Wt 43.2 kg
[~2018-10-21 11:11] MED LIST changes: +ALBUTEROL1.25 MG/3 INH; +ATROVENT 0.02%2.5 ML UPD; +BROVANA15 MCG/2 M INH; +STERAPRED DS 1010 MG PO
[2018-10-21 11:19] VITALS: Ht 162.6 cm; Wt 43.2 kg
[2018-10-21] MEDS ORDERED: BUSPAR 15 MG TA15 MG PO (11:20)
[2018-10-21 11:57] LABS: BASOPHILS 0.2 % (0-2); EOSINOPHILS 1.1 % (0-7); HEMATOCRIT 40.7 % (36.0-48.0); HEMOGLOBIN 13.2 g/dL (12-16); IMMATURE GRANULOCYTES 0.2 % (0-5); LYMPHOCYTES 19.6 % (15-50); MCHC 32.4 g/dL (31.0-37.0); MCV 92.5 fL (80.0-100.0); MEAN PLATELET VOLUME 8.8 fL (7.4-10.4); MONOCYTES 6.7 % (2-11); NEUTROPHILS 72.2 % (40-80); PLATELET COUNT 320 10x3/uL (130-400); RDW 13.6 % (11.5-14.5); WBC 10.1 10x3/uL (4.8-10.8)
[2018-10-21 12:07] LABS: INR 0.92 (0.85-1.17); PROTIME 11.9 SECONDS (11.6-15.0)
[2018-10-21 12:08] LABS: ALKALINE PHOSPHATASE 135 U/L (46-116); ALT (SGPT) 53 U/L (10-68); APTT 26.8 SECONDS (22.8-39.4); BILIRUBIN - TOTAL 0.29 mg/dL (0.2-1.3); CALC OSMOLALITY 266 mosm/kg (275-300); CALCIUM 9.2 mg/dL (8.5-10.1); CARBON DIOXIDE 29.4 mmol/L (21.0-32.0); CHLORIDE - SERUM 95 mmol/L (98-107); CREATININE - SERUM 0.4 mg/dL (0.6-1.3); GLUCOSE 128 mg/dL (74-106); PROTEIN - SERUM 8.1 g/dL (6.4-8.2); SODIUM 132 mmol/L (136-145); UREA NITROGEN 12 mg/dL (7-18); eGFR NON AFRICAN AMERICAN > 90 mL/min (90-120)
[2018-10-21 12:20] LABS: CKMB 0.9 U/L (0.0-3.6); CREATINE KINASE 57 UL (21-215); PRO BNP 107 pg/mL (0-125); TROPONIN-I < 0.017 ng/mL (0.000-0.060)
[2018-10-21 17:34] VITALS: BP 177/98
== END 2018-10-21 17:28 | disposition home or self-care (01) ==
LOC: D.ER 11:11
PROVIDERS: Family Medicine
DX: M48.061 Spinal stenosis, lumbar region without neurogenic claudication (principal); I10 Essential (primary) hypertension; M54.5 Low back pain